=== PATIENT | male | born 1940 | race Caucasian/White ===

== ENCOUNTER 2022-12-11 06:34 | Day surgery (SDC) | payer MEDICARE ==
[~2022-12-11 06:34] MED LIST: SODIUM CHLORIDE 0.9% 1,000 ML IV SCH
[2022-12-11] MEDS ORDERED: SODIUM CHLORIDE 0.9% 1,000 ML IV ONE (06:44)
[2022-12-11] MEDS ORDERED: ceFAZolin 1 GM in SODIUM CHLORIDE 0.9% IRRIG BTL 250 ML IRRIGATION PRN (07:00)
[2022-12-11 07:07] VITALS: RESP 16; TEMP 98.6
[2022-12-11] MEDS ORDERED: fentaNYL (PF) 50 MCG/ML 2 ML AMP ONE (07:42)
[2022-12-11] MEDS ORDERED: LIDOCAINE 1% INJ 10MG/ML (20 ML MDV) ONE ×2 (07:43→08:01)
[2022-12-11] MEDS ORDERED: MIDAZOLAM 2 MG/2 ML VIAL IV ONE ×2 (07:48)
[2022-12-11] MEDS ORDERED: fentaNYL (PF) 50 MCG/ML 2 ML AMP IV ONE ×2 (07:49)
[2022-12-11] MEDS ORDERED: LIDOCAINE 1% INJ 10MG/ML (20 ML MDV) SQ ONE (07:52)
[2022-12-11 08:04] LABS: INR 1.1 (<1.2); Prothrombin Time 11.5 sec (9.0-12.0)
[2022-12-11] MEDS ORDERED: ACETAMINOPHEN TAB 325 MG TAB PO PRN (09:18)
[2022-12-11] MEDS ORDERED: ACETAMINOPHEN IV (For NPO) 1,000 MG in EMPTY BAG 1 BAG IVPB STA (09:26)
[2022-12-11 12:24] VITALS: BP 114/70; PULSE 60
--- NOTE | 2022-12-11 17:31 | P.PCN ---
Description of Procedure: CARDIOLOGY PROCEDURE NOTE Gyroscopic Instrument Tester: Dr. Mathieu Eugene HPI: Patient is a pleasant 82-year-old male with a history of sick sinus syndrome status post dual-chamber permanent pacemaker with addition of single RV AICD lead. Patient had end of battery life and therefore generator change was recommended. Procedure performed: Dual chamber permanent pacemaker generator change Site: Left subclavian Indications: Sick Sinus Syndrome Complications: None Blood Loss: Minimal Description of Procedure: After the risks, benefits, and alternatives of the above-mentioned procedure was explained in detail with the patient, informed consent was obtained. The patient was taken to the cardiac catheterization suite where the left subclavian area was sterily prepped and draped in the usual fashion. Patient was given IV Versed and fentanyl for sedation. The skin over the existing pulse generator was infiltrated with lidocaine. An incision was made in the skin and was deepened until the pectoral fascia was exposed. Hemostasis was obtained. The existing pulse generator was pulled out of the pocket. The leads were disconne cted and were checked for thresholds. The existing leads were then inserted into the appropriate position into the new generator. They were then secured with the setscrew provided. The leads and gen erator were inserted into the pocket with the leads posterior. The subcutaneous tissue was approximated utilizing #2.0 and 3.0 vicryl in an interrupted stitch fashion. The dermal layer was approximated utilizing #4.0 vicryl. The area was cleansed with sterile saline and dried. A sterile 4x4 dressing was applied and the patient was transferred to the post catheterization holding area in stable and satisfactory condition. The patient tolerated the procedure well. Generator Data [employer] Consultant: [email or web address] Brand: [id number] Waller XT DR MRI Model #: [id number] Serial#: [id number] Right Atrial Bipolar Lead Data: Type: Active fixation lead [employer] Consultant: [facility] Model#: 5076-52 Serial Number: [id number] Right Ventricular Bipolar Lead Data: Type: Active fixation lead [employer] Consultant: [employer] Model #: [id number] Serial #: [id number] Stimulation Thresholds: Right atrial bipolar lead pacing and sensing thresholds Voltage: 0.7V Impedance: 551 ohms P-wave sensin.5 mV Right Ventricular bipolar lead pacing and sensing thresholds Pulse Width: 0.4ms Voltage: 1.0 volts Impedance: 342 ohms R-wave sensing: dependent Parameter Setting: Pacing mode is AAIR<=>DDDR Lower rate 60 bpm Upper rate 130 bpm Impressions: 1. Successful generator change of a dual chamber permanent pacemaker in the left pectoral site. Plan: 1. Routine post procedure care will be instituted as well as outpatient follow- up surveillance.
== END 2022-12-11 11:20 | disposition home or self-care (01) ==
LOC: CATHEP 06:34
PROVIDERS: ATTEND Internal Medicine
DX: Z45.010 Encounter for checking and testing of cardiac pacemaker pulse generator [battery] (principal); I49.5 Sick sinus syndrome; Z95.810 Presence of automatic (implantable) cardiac defibrillator; I48.0 Paroxysmal atrial fibrillation; I47.1 Supraventricular tachycardia; I08.0 Rheumatic disorders of both mitral and aortic valves; I27.20 Pulmonary hypertension, unspecified; I42.8 Other cardiomyopathies; Z79.01 Long term (current) use of anticoagulants; Z79.899 Other long term (current) drug therapy
CPT/HCPCS: 33228; 85610; C1785; J2250; J0690; J2001; J3010; J0131

== ENCOUNTER → 2023-02-25 | Outpatient (CLI) | payer MEDICARE ==
--- NOTE | 2023-02-25 16:19 | US ---
EXAMINATION TYPE: US venous doppler duplex LE RT DATE OF EXAM: 02/25/2023 4:06 PM COMPARISON: NONE CLINICAL INDICATION: Male, 82 years old with history of R60.0 EDEMA; Right calf pain SIDE PERFORMED: Right TECHNIQUE: The lower extremity deep venous system is examined utilizing real time linear array sonog shane with graded compression, doppler sonography and color-flow sonography. VESSELS IMAGED: Common Femoral Vein Deep Femoral Vein Greater Saphenous Vein * Femoral Vein Popliteal Vein Small Saphenous Vein * Proximal Calf Veins (* superficial vessels) Right Leg: Appears negative for DVT Grayscale, color doppler, spectral doppler imaging performed of the deep veins of the right lower ext remity. There is normal flow, compressibility, vascular waveforms. IMPRESSION: No ultrasound evidence for acute DVT in the right lower extremity.
== END | disposition home or self-care (01) ==
LOC: RADUSWWP 15:45
PROVIDERS: ATTEND Family Medicine
DX: R60.0 Localized edema (principal); M79.661 Pain in right lower leg

== ENCOUNTER → 2024-03-13 | Outpatient (CLI) | payer MEDICARE ==
--- NOTE | 2024-03-13 14:26 | CT ---
EXAMINATION TYPE: CT lumbar spine wo con DATE OF EXAM: 03/13/2024 2:15 PM COMPARISON: None HISTORY: back pain and left hip pain CT DLP: 475.2 mGycm Automated exposure control for dose reduction was used. Unenhanced CT of the lumbar spine was performed. Bone and soft tissue window settings are submitted as well as coronal and sagittal reconstructions. Scoliosis convex to the left. L1-L2: Normal disc space height. No disc herniation protrusion or central stenosis. No facet joint arthropathy. No evidence for foraminal encroachment. L2-L3: Moderate degenerative disc space narrowing and posterior disc bulge and effacement of the vent ral thecal sac. Hypertrophied ligamentum flavum and facet joint arthropathy resulting in moderate elma tral stenosis. Bilateral foraminal encroachment. L3-L4: Severe degenerative disc space narrowing and posterior disc bulge and effacement of the ventra l thecal sac. Hypertrophied ligamentum flavum and facet joint arthropathy resulting in severe central stenosis. Bilateral foraminal encroachment. Grade 1 anterolisthesis measuring 3 mm. L4-L5: Severe degenerative disc space narrowing and vacuum disks. Posterior disc bulge with partial e ncapsulating hard disc. Hypertrophy of the ligamentum flavum and facet joint arthropathy resulting in moderate central stenosis. Left greater than right foraminal encroachment. L5-S1: Severe degenerative disc space narrowing and vacuum disks. Posterior disc bulge without eviden ce for central stenosis or herniation. Visualized foramina are patent. No paraspinal masses are identified. Lumbar segments are intact. Scattered ventral spondylosis. IMPRESSION: 1. 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
== END | disposition home or self-care (01) ==
LOC: RADCTMAIN 13:52
PROVIDERS: ATTEND Physical Medicine & Rehabilitation
DX: M47.816 Spondylosis without myelopathy or radiculopathy, lumbar region (principal); M41.26 Other idiopathic scoliosis, lumbar region; M51.36 Other intervertebral disc degeneration, lumbar region; M48.061 Spinal stenosis, lumbar region without neurogenic claudication; M43.16 Spondylolisthesis, lumbar region
CPT/HCPCS: 72131

== ENCOUNTER → 2024-04-16 | Outpatient (CLI) | payer MEDICARE ==
[2024-04-16 11:21] LABS: INR 1.2 (<1.2); Prothrombin Time 12.4 sec (10.0-12.5)
== END | disposition home or self-care (01) ==
LOC: LABWHC1 10:07
PROVIDERS: ATTEND Physical Medicine & Rehabilitation
DX: M41.26 Other idiopathic scoliosis, lumbar region (principal); M47.816 Spondylosis without myelopathy or radiculopathy, lumbar region; Z79.01 Long term (current) use of anticoagulants
CPT/HCPCS: 36415; 85610

== ENCOUNTER → 2024-12-09 | Outpatient (CLI) | payer MEDICARE ==
[2024-12-09 13:34] LABS: African American GFR (CKD) 80 (>60 ml/min/1.73 sqM); Blood Urea Nitrogen 28 mg/dL (9-20); Non-African American GFR(CKD) 69 (>60 ml/min/1.73 sqM)
--- NOTE | 2024-12-09 14:43 | CT ---
EXAMINATION TYPE: CT soft tissue neck w con CT DLP: 330.3 mGycm, Automated exposure control for dose reduction was used. DATE OF EXAM: 12/09/2024 2:02 PM COMPARISON: Thyroid ultrasound 11/09/2024. CLINICAL INDICATION:Male, 84 years old with history of R22.1 SWELL MASS LUMP NECK; PHH, Left sided ne ck swelling, mass or lump marked by a BB TECHNIQUE: Standard enhanced CT of the neck following intravenous administration of 100 cc of Isovue 300. Axial sections with coronal and sagittal reformats were obtained. FINDINGS: Dental amalgam creates streak artifact which limits evaluation. Brain: Visualized portions are grossly unremarkable. Orbits: Unremarkable Sinuses: Mild mucosal thickening of the maxillary sinuses. Suprahyoid Neck: The oropharynx, oral cavity, parapharyngeal and retropharyngeal spaces are clear and symmetric. The nasopharynx is unremarkable. Infrahyoid Neck: The larynx, hypopharynx, and supraglottic area are clear and symmetric. Parotid Glands: Unremarkable. Submandibular Glands: Unremarkable. Musculoskeletal: Degenerative disc disease changes of the visualized spine are present. No acute osse ous abnormality. No aggressive osseous lesion. Lymph nodes: There are at least 4 ovoid heterogenous enhancing lesions within the left submandibular /submental space at site of palpable marker. Some are hypodense centrally with exam including a 1.7 c m ovoid lesion at the palpable marker in the submandibular space (series 3, image 53). The other lesi ons extend more into the submental space measuring 1.5 cm (series 3, image 53), 1.4 cm (series 3, 52) , and 1.2 centers (series 3, image 50). These lesions are superficial to the submandibular gland. No other evidence for pathologically enlarged lymph nodes. Vascular structures: Mild atherosclerotic calcifications of the internal carotid arteries. Thoracic Inlet/airway: Airway is patent. The lung apices are clear. Partial visualization of cardiac pacemaking leads. Soft tissues/Thyroid: Atrophic thyroid gland. Remaining soft tissues appear unremarkable. Other: none. IMPRESSION: Approximately 4 ovoid lesions with some demonstrating central hypodensity within the left submandibul ar/submental space anterior to the submandibular gland. These correspond to ultrasound findings. Etio logies include benign and malignant tumors versus abnormal lymphadenopathy. Recommend tissue sampling . [facility], , 12/09/2024 2:41 PM
== END | disposition home or self-care (01) ==
LOC: RADCTMAIN 12:40
PROVIDERS: ATTEND Otolaryngology
DX: R22.1 Localized swelling, mass and lump, neck (principal); E03.4 Atrophy of thyroid (acquired)
CPT/HCPCS: 82565; 84520; 70491; 36415; Q9967

== ENCOUNTER 2024-12-11 12:08 | Inpatient (IN) | payer MEDICARE ==
[2024-12-11] MEDS ORDERED: VANCOMYCIN IV PER PHARMACY 1 EACH MISC MISCELLANE PRN (12:32)
--- NOTE | 2024-12-11 12:42 | ED ---
General Adult HPI - General Chief complaint: Weakness Stated complaint: Weakness Time Seen by Provider: 12/11/24 12:09 Source: patient, EMS Mode of arrival: EMS Limitations: no limitations - History of Present Illness Initial comments: Patient is an 84-year-old gentleman PMH pacemaker on coumadin, presenting today for lightheadedness, fever and hypoxia. History obtained from patient, EMS and patient's . This morning at 5 AM patient woke up and on the way to his bathroom was very unsteady on his feet. This caused him to fall twice witnessed by the patient's . He did not suffer any head trauma. This morning woke up and was acting normally, ate cereal like he normally would and went to his doctor's appointment to have his left neck mass evaluated. While at his doctor's appointment he was noted to be hypoxic with pulse ox 77% on room air and was felt to have a left-sided lean. Patient denies head or neck trauma last night. He is currently on warfarin for his pacemaker. He endorses 2 weeks of right upper quadrant abdominal pain. Denies shortness of breath, cough, chest pain or difficulty in breathing. No fevers prior to this morning. No medications prior to arrival. Denies nausea, vomiting, diarrhea, melena, hematochezia, dysuria,, constipation, hematuria. Patient's and patient are unsure of what patient's recent CT scan of his neck showed, as they have not yet received results. No history of prior CVA. - Related Data Home Medications Medication Instructions Recorded Confirmed Digoxin [Lanoxin] 125 mcg PO DAILY 12/10/22 12/11/24 Levothyroxine Sodium [Synthroid] 50 mcg PO DAILY 12/10/22 12/11/24 Warfarin Sodium 5 mg PO DAILY@1600 12/10/22 12/11/24 atenoloL [Tenormin] 25 mg PO DAILY@1600 12/10/22 12/11/24 Previous Rx's Medication Instructions Recorded Acetaminophen Tab [Tylenol] 650 mg PO Q6HR PRN tab 12/14/24 Atorvastatin [Lipitor] 20 mg PO HS #30 tab 12/14/24 cefuroxime axetiL [Ceftin] 500 mg PO BID 10 Days #20 tab 12/14/24 metroNIDAZOLE [Flagyl] 500 mg PO TID 10 Days #30 tab 12/14/24 Allergies Allergy/AdvReac Type Severity Reaction Status Date / Time No Known Allergies Allergy Verified 12/11/24 13:44 Review of Systems ROS Statement: Those systems with pertinent positive or pertinent negative responses have been documented in the HPI. ROS Other: All systems not noted in ROS Statement are negative. Past Medical History Past Medical History: Atrial Fibrillation, Hypertension, Osteoarthritis (OA), Thyroid Disorder Additional Past Medical History / Comment(s): right shoulder pain currently, thinks probably hurt it working out History of Any Multi-Drug Resistant Organisms: None Reported Past Surgical History: Adenoidectomy, Pacemaker, Tonsillectomy Additional Past Surgical History / Comment(s): vasectomy, bashir hydrocele repair, colonoscopies Past Anesthesia/Blood Transfusion Reactions: Previous Problems w/ Anesthesia Additional Past Anesthesia/Blood Transfusion Reaction / Comment(s): was told by mom when tonsils removed turned blue w/ether Type of Cardiac Device: Permanent Pacemaker Device Placement Date:: 2012 Past Psychological History: No Psychological Hx Reported Smoking Status: Never smoker General Exam - General Exam Comments Initial Comments: PE: CONSTITUTIONAL: No apparent distress, somewhat ill appearing and nontoxic SKIN: Warm, dry, no jaundice, hives or petechiae EYES: Pupils are equally round, extraocular movements intact without nystagmus, clear conjunctiva, non-icteric sclera HENT: Normocephalic, atraumatic, dry mucus membranes, oropharynx clear without exudates NECK: , Full range of motion, normal appearance, no midline spinal TTP PULMONARY: Clear to auscultation without wheezes, rhonchi, or rales, normal ex cursion, no accessory muscle use and no stridor CARDIOVASCULAR: Regular rate, rhythm, normal S1 and S2. No appreciated murmurs, rubs or gallops. Strong radial pulses with intact distal perfusion. No lower extremity edema GASTROINTESTINAL: Soft, active bowel sounds throughout minimal TTP of the right side of the abdomen negative Marks sign, no point tenderness, negative CVA tenderness, non-distended, no palpable masses, no rebound or guarding. No hepatosplenomegaly GENITOURINARY: MUSCULOSKELETAL: Extremities have no gross deformity, no edema, redness, or swelling. No calf swelling NEUROLOGIC: [_a/o x 3, GCS 15, normal mentation, seems mildly aphasic when answering certain questions, speech is clear. Moves all extremities x 4 without motor or sensory deficit, there is no extinction, + dysdiadochokinesia with the bilateral upper extremities, cranial nerves: II (visual gilmore without defects), III, IV and (extraocular movements are intact, pupils are equal with normal reaction to light), V (intact facial sensation and jaw opening), VII (no facial droop), IX and X (normal palate movement, midline uvula, normal voice), XI (symmetrical shoulder shrug and lateral head rotation against resistance), XII (midline tongue protrusion). Motor strength is 5/5 in all extremities. No abnorm al movements. Normal muscle tone. Sensation to light touch is intact bilaterally. No truncal instability or hemineglect PSYCHIATRIC:_normal mood and affect, thought process is clear and linear Limitations: no limitations Course Vital Signs 12/11/24 12/11/24 12/11/24 12:12 13:05 13:55 Temperature 103.3 F H 102.7 F H Pulse Rate 77 60 Respiratory 18 20 Rate Blood Pressure 121/80 107/55 O2 Sat by Pulse 98 88 L 95 Oximetry 12/11/24 16:16 Temperature 99.8 F H Pulse Rate 61 Respiratory 18 Rate Blood Pressure 118/72 O2 Sat by Pulse 97 Oximetry - Reevaluation(s) Reevaluation #1: Case discussed w/ Dr. Noel. Will follow along w/ imaging 12/11/24 12:42 12/15/24 11:43 EKG Findings - EKG Comments: EKG Findings:: Paced rhythm, right bundle branch block, rate 65 bpm GA interval 209 ms QT/QTc 410/421 ms, left axis deviation, T wave inversion leads V1 through V4, no ST depressions or obvious elevations, borderline EKG Medical Decision Making - Medical Decision Making Was pt. sent in by a medical professional or institution (, PA, ENERGY PROJECT MANAGER, urgent care, hospital, or alf...) When possible be specific @ -Patient was sent over from the primary care provider's office due to hypoxia, fever and questionable left-sided lean. Did you speak to anyone other than the patient for history (EMS, parent, family, police, friend...)? What history was obtained from this source @ Spoke w/ pt's who provided additional hx noted in HPI, noting at 5 AM this morning is when unsteadiness and falls occurred, also notes left sided neck mass began in August, resolved spontaneously and the reoccurred prompting CT scan and today's visit to PCP's office Did you review nursing and triage notes (agree or disagree)? Why? @ -I reviewed nursing and triage notes Were old charts reviewed (outside hosp., previous admission, EMS record, old EKG, old radiological studies, urgent care reports/EKG's, alf records)? Report findings @ -Medical records reviewed- Reviewed CT soft tissue neck with contrast performed on 12/09/2024, impression notes approximately 4 open lesions with some demonstrating central hypodensity within the left submandibular/submental space anterior to the submandibular gland, correspond ultrasound findings, etiologies include benign versus malignant tumors versus abnormal lymphadenopathy and recommends tissue sampling Differential Diagnosis (chest pain, altered mental status, abdominal pain women, abdominal pain men, vaginal bleeding, weakness, fever, dyspnea, syncope, headache, dizziness, GI bleed, back pain, seizure, CVA, palpatations, mental health, musculoskeletal)? @Differential diagnosis remains broad however top considerations include sepsis/infection, hypoglycemia, electrolyte abnormality, ACS, malignancy, hemorrhagic versus ischemic CVA, encephalitis, it is not all-inclusive list EKG interpreted by me (3pts min.). @ -As above X-rays interpreted by me (1pt min.). @ -[I personally reviewed chest x-ray, cardiomegaly noted, I see no evidence of pleural effusions, consolidations or pulmonary nodules/masses I agree with radiologist interpretation CT interpreted by me (1pt min.). @Personally reviewed CT abdomen pelvis, appears to show multiple hepatic masses, right renal cyst, bladder wall thickening. Read by radiologist as multiple hypoattenuating masses throughout the liver underlying metastatic disease is not excluded, masses measure up to 5.4 cm biliary tree is normal in caliber, urinary bladder wall thickening may reflect cystitis, simple cyst in the right kidney, noticing masses, appendix was not visualized Personally reviewed CT brain, CTA head and neck, on review of these images I see no evidence of hemorrhage, mass effect or intracranial mass, though left submandibular masses are noted; no large vessel occlusion on CTA head and neck, again note left submandibular masses, I agree with radiologist interpretation U/S interpreted by me (1pt. min.). @ -I personally reviewed ultrasound of the appendix, the appendix was not visualized, I agree with radiologist interpretation I personally reviewed ultrasound of the liver, multiple round masses noted, these do not appear to be thick walled, I agree with radiologist interpretation What testing was considered but not performed or refused? (CT, X-rays, U/S, labs)? Why? @ -None What meds were considered but not given or refused? Why? @ -None Did you discuss the management of the patient with other professionals (professionals i.e. , PA, ENERGY PROJECT MANAGER, lab, RT, psych nurse, social security assessor, testing and regulating chief, teacher, code enforcement officer, bottle caser)? Give summary @Case was discussed w/ Dr. Noel stroke network, will follow along w/ imaging results Was smoking cessation discussed for >3mins.? @ -No Was critical care preformed (if so, how long)? @ Yes 35 minutes Were there social determinants of health that impacted care today? How? (Homelessness, low income, unemployed, alcoholism, drug addiction, transportation, low edu. Level, literacy, decrease access to med. care, detention, rehab)? @ -No Was there de-escalation of care discussed even if they declined (Discuss DNR or withdrawal of care, Hospice)? @ -No What co-morbidities impacted this encounter? (DM, HTN, Smoking, COPD, CAD, Cancer, CVA, ARF, Chemo, Hep., AIDS, mental health diagnosis, sleep apnea, morbid obesity)? @ Atrial fibrillationw/ pacemaker, on coumadin Was patient admitted / discharged? Hospital course, mention meds given and route, prescriptions, significant lab abnormalities, going to OR and other pertinent info. @ -Admission - patient presenting today for fever, pulse ox 77% on outpatient visit, and new onset dizziness with falls. Patient seen and assessed on arrival by myself. He is dry mucous membranes, seems to have some difficulty with word finding during history gathering but is able to identify a pen, phone and watch. He does not appear to have any lean or truncal instability. 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 No other focal neurologic deficits. Some right sided abdominal pain without guarding, negative Marks sign. Patient febrile here with temp 103.3 degrees. Otherwise vital signs acceptable limits. Patient did arrive on 4 L oxygen nasal cannula, he was removed from this during my conversation, and pulse ox decreased only 92% without any increased work of breathing. Patient's will arrive shortly after. Given new unsteadiness, difficulty with word finding and finger-nose testing, stroke alert was activated though I do suspect patient's symptoms are more likely secondary to other etiology noted above, given fever and hypoxia. Of note patient is outside the window for tenecteplase and is currently on Coumadin so is not a tenecteplase candidate. Sepsis bundle was ordered, Rocephin, vancomycin, Ofirmev. Given unknown ejection fraction we will start with [address] brain negative for acute process. CT head neck shows submandibular masses, CT abdomen pelvis also shows masses throughout the liver concerning for metastases. I updated patient and his to these findings and concern for potential neoplasm/ malignancy. We discussed plan for admission for further workup/evaluation and treatment. Pt notes brother who from non hodgkin's lymphoma, sister hx of ovarian CA. Additionally, I was notified by RN that pt's pulse ox did ultimately decrease to 88% on room air. Was placed on 2L nasal cannula. Of note labs were significant for total bilirubin 1.7, AST/ALT 121/92, alk phos 200, mild leukocytosis white blood count 14.1, platelet 132, hemoglobin 12. Case discussed with Dr. Espinoza, kindly accepts patient for admission. Undiagnosed new problem with uncertain prognosis? @Yes submandibular and liver masses w/ uncertain etiology, potential malignancy Drug Therapy requiring intensive monitoring for toxicity (Heparin, Nitro, Insulin, Cardizem)? @ -No Were any procedures done? @ -No Diagnosis/symptom? @ Sepsis, Generalized weakness, submandibular masses with liver masses, acute hypoxic respiratory failure Acute, or Chronic, or Acute on Chronic? @ -acute Uncomplicated (without systemic symptoms) or Complicated (systemic symptoms)? @complicated Side effects of treatment? @ -No Exacerbation, Progression, or Severe Exacerbation? @ -No Poses a threat to life or bodily function? How? (Chest pain, [place], [place], pneumonia, PE, COPD, DKA, ARF, appy, cholecystitis, CVA, Diverticulitis, Homicidal, Suicidal, threat to staff... and all critical care pts) @ Yes, if left untreated could progress to septic shock, if masses left unevaluated and malginant could ultimately cause threat to life - Lab Data Result diagrams: 12/14/24 04:16 12/14/24 04:16 Lab Results 12/11/24 12/11/24 12/11/24 Range/Units 13:01 13:07 13:24 WBC 14.1 H (3.8-10.6) k/uL RBC 3.95 L (4.30-5.90) m/uL Hgb 12.0 L (13.0-17.5) gm/dL Hct 36.8 L (39.0-53.0) % MCV 93.0 (80.0-100.0) fL MCH 30.3 (25.0-35.0) pg MCHC 32.6 (31.0-37.0) g/dL RDW 12.8 (11.5-15.5) % Plt Count 132 L (150-450) k/uL MPV 8.2 Neutrophils % 85 % Lymphocytes % 8 % Monocytes % 6 % Eosinophils % 1 % Basophils % 0 % Neutrophils # 11.9 H (1.3-7.7) k/uL Lymphocytes # 1.2 (1.0-4.8) k/uL Monocytes # 0.8 (0-1.0) k/uL Eosinophils # 0.1 (0-0.7) k/uL Basophils # 0.0 (0-0.2) k/uL PT (10.0-12.5) sec INR (<1.2) APTT (22.0-30.0) sec Sodium (137-145) mmol/L Potassium (3.5-5.1) mmol/L Chloride (98-107) mmol/L Carbon Dioxide (22-30) mmol/L Anion Gap mmol/L BUN (9-20) mg/dL Creatinine (0.66-1.25) mg/dL Est GFR (CKD-EPI)AfAm (>60 ml/min/1.73 sqM) Est GFR (CKD-EPI)NonAf (>60 ml/min/1.73 sqM) Glucose (74-99) mg/dL POC Glucose (mg/dL) 159 H (70-110) mg/dL POC Glu [employer] Instructor ID Wilfrid Thelma Plasma Lactic Acid Francois (0.7-2.0) mmol/L Calcium (8.4-10.2) mg/dL Total Bilirubin (0.2-1.3) mg/dL AST (17-59) U/L ALT (4-49) U/L Alkaline Phosphatase (38-126) U/L Creatine Kinase (55-170) U/L Troponin I (0.000-0.034) ng/mL Total Protein (6.3-8.2) g/dL Albumin (3.5-5.0) g/dL Urine Color Urine Appearance (Clear) Urine pH (5.0-8.0) Ur Specific [place] (1.001-1.035) Urine Protein (Negative) Urine Glucose (UA) (Negative) Urine Ketones (Negative) Urine Blood (Negative) Urine Nitrite (Negative) Urine Bilirubin (Negative) Urine Urobilinogen (<2.0) mg/dL Ur Leukocyte Esterase (Negative) Urine RBC (0-5) /hpf Urine WBC (0-5) /hpf Urine Mucus (None) /hpf Influenza Type A (PCR) Not Detected (Not Detectd) Influenza Type B (PCR) Not Detected (Not Detectd) RSV (PCR) Not Detected (Not Detectd) SARS-CoV-2 (PCR) Not Detected (Not Detectd) 12/11/24 12/11/24 12/11/24 Range/Units 13:24 13:24 13:24 WBC (3.8-10.6) k/uL RBC (4.30-5.90) m/uL Hgb (13.0-17.5) gm/dL Hct (39.0-53.0) % MCV (80.0-100.0) fL MCH (25.0-35.0) pg MCHC (31.0-37.0) g/dL RDW (11.5-15.5) % Plt Count (150-450) k/uL MPV Neutrophils % % Lymphocytes % % Monocytes % % Eosinophils % % Basophils % % Neutrophils # (1.3-7.7) k/uL Lymphocytes # (1.0-4.8) k/uL Monocytes # (0-1.0) k/uL Eosinophils # (0-0.7) k/uL Basophils # (0-0.2) k/uL PT 23.5 H (10.0-12.5) sec INR 2.3 H (<1.2) APTT 29.3 (22.0-30.0) sec Sodium 136 L (137-145) mmol/L Potassium 4.3 (3.5-5.1) mmol/L Chloride 100 (98-107) mmol/L Carbon Dioxide 32 H (22-30) mmol/L Anion Gap 4 mmol/L BUN 28 H (9-20) mg/dL Creatinine 1.07 (0.66-1.25) mg/dL Est GFR (CKD-EPI)AfAm 73 (>60 ml/min/1.73 sqM) Est GFR (CKD-EPI)NonAf 64 (>60 ml/min/1.73 sqM) Glucose 146 H (74-99) mg/dL POC Glucose (mg/dL) (70-110) mg/dL POC Glu [employer]ision [employer]air Instructor ID Plasma Lactic Acid Francois (0.7-2.0) mmol/L Calcium 9.6 (8.4-10.2) mg/dL Total Bilirubin 1.7 H (0.2-1.3) mg/dL AST 121 H (17-59) U/L ALT 92 H (4-49) U/L Alkaline Phosphatase 200 H (38-126) U/L Creatine Kinase 138 (55-170) U/L Troponin I 0.024 (0.000-0.034) ng/mL Total Protein 6.8 (6.3-8.2) g/dL Albumin 3.6 (3.5-5.0) g/dL Urine Color Urine Appearance (Clear) Urine pH (5.0-8.0) Ur Specific [place] (1.001-1.035) Urine Protein (Negative) Urine Glucose (UA) (Negative) Urine Ketones (Negative) Urine Blood (Negative) Urine Nitrite (Negative) Urine Bilirubin (Negative) Urine Urobilinogen (<2.0) mg/dL Ur Leukocyte Esterase (Negative) Urine RBC (0-5) /hpf Urine WBC (0-5) /hpf Urine Mucus (None) /hpf Influenza Type A (PCR) (Not Detectd) Influenza Type B (PCR) (Not Detectd) RSV (PCR) (Not Detectd) SARS-CoV-2 (PCR) (Not Detectd) 12/11/24 12/11/24 Range/Units 13:24 14:23 WBC (3.8-10.6) k/uL RBC (4.30-5.90) m/uL Hgb (13.0-17.5) gm/dL Hct (39.0-53.0) % MCV (80.0-100.0) fL MCH (25.0-35.0) pg MCHC (31.0-37.0) g/dL RDW (11.5-15.5) % Plt Count (150-450) k/uL MPV Neutrophils % % Lymphocytes % % Monocytes % % Eosinophils % % Basophils % % Neutrophils # (1.3-7.7) k/uL Lymphocytes # (1.0-4.8) k/uL Monocytes # (0-1.0) k/uL Eosinophils # (0-0.7) k/uL Basophils # (0-0.2) k/uL PT (10.0-12.5) sec INR (<1.2) APTT (22.0-30.0) sec Sodium (137-145) mmol/L Potassium (3.5-5.1) mmol/L Chloride (98-107) mmol/L Carbon Dioxide (22-30) mmol/L Anion Gap mmol/L BUN (9-20) mg/dL Creatinine (0.66-1.25) mg/dL Est GFR (CKD-EPI)AfAm (>60 ml/min/1.73 sqM) Est GFR (CKD-EPI)NonAf (>60 ml/min/1.73 sqM) Glucose (74-99) mg/dL POC Glucose (mg/dL) (70-110) mg/dL POC Glu [employer] Instructor ID Plasma Lactic Acid Francois 1.6 (0.7-2.0) mmol/L Calcium (8.4-10.2) mg/dL Total Bilirubin (0.2-1.3) mg/dL AST (17-59) U/L ALT (4-49) U/L Alkaline Phosphatase (38-126) U/L Creatine Kinase (55-170) U/L Troponin I (0.000-0.034) ng/mL Total Protein (6.3-8.2) g/dL Albumin (3.5-5.0) g/dL Urine Color Yellow Urine Appearance Clear (Clear) Urine pH 5.5 (5.0-8.0) Ur Specific [place] >1.050 H (1.001-1.035) Urine Protein Trace H (Negative) Urine Glucose (UA) Negative (Negative) Urine Ketones Negative (Negative) Urine Blood Small H (Negative) Urine Nitrite Negative (Negative) Urine Bilirubin Negative (Negative) Urine Urobilinogen <2.0 (<2.0) mg/dL Ur Leukocyte Esterase Negative (Negative) Urine RBC 3 (0-5) /hpf Urine WBC 1 (0-5) /hpf Urine Mucus Rare H (None) /hpf Influenza Type A (PCR) (Not Detectd) Influenza Type B (PCR) (Not Detectd) RSV (PCR) (Not Detectd) SARS-CoV-2 (PCR) (Not Detectd) Disposition Clinical Impression: Liver masses, Mass of left submandibular region, Generalized weakness Disposition: ADMITTED IP TO THIS HOSP Condition: Stable
--- NOTE | 2024-12-11 12:50 | CT ---
EXAMINATION TYPE: CODE STROKE: CT brain wo contr DATE OF EXAM: 12/11/2024 COMPARISON: None CLINICAL INDICATION: Male, 84 years old with history of on warfarin, dizziness, dysdiadokinesia; PHH, AMS TECHNIQUE: CT scan of the head is performed without contrast. CT DLP: [address] CTDI: mGy Automated exposure control for dose reduction was used. FINDINGS: There is no acute intracranial hemorrhage or midline shift identified. There is diffuse v entricular and sulcal prominence consistent with diffuse age-related cerebral atrophy. There is low- attenuation in the periventricular white matter consistent with chronic small vessel ischemic change. The globes are intact and the visualized sinuses are clear. IMPRESSION: No acute intracranial hemorrhage or midline shift. There is diffuse age-related cerebra l atrophy and chronic small vessel ischemic change noted. [facility], , 12/11/2024 12:48 PM
[2024-12-11] MEDS: ACETAMINOPHEN IV (For NPO) 1,000 MG in EMPTY BAG 1 BAG IVPB STA (13:05)
[2024-12-11] MEDS: SODIUM CHLORIDE 0.9% 1,000 ML IV STA (13:05)
[2024-12-11 13:08] LABS: Glucose,Whole Blood 159 mg/dL (70-110)
--- NOTE | 2024-12-11 13:10 | CT ---
EXAMINATION TYPE: CT angio head neck CT DLP: 452.3 mGycm, Automated exposure control for dose reduction was used. DATE OF EXAM: 12/11/2024 1:00 PM COMPARISON: CT brain 12/11/2024, CT soft tissue neck 12/09/2024. CLINICAL INDICATION:Male, 84 years old with history of Neuro deficit, acute, stroke suspected; PHH, C ODE STROKE TECHNIQUE: Axially acquired helical CT angiogram of the head and neck was obtained with contrast util izing 75 cc of Isovue-370 administered intravenously. Axial images are supplemented with 3D reconstru ctions which were post-processed at an independent workstation. NASCET criteria used. FINDINGS: CTA HEAD: No evidence of acute intracranial hemorrhage, mass effect, or midline shift. The ventricles, sulci, a nd cisterns are unremarkable. The visualized portions of the internal carotid arteries, middle cerebral arteries, anterior cerebral arteries, and posterior cerebral arteries are patent. origin of the right PRICING MANAGER. The basilar and vertebral arteries are patent. CTA NECK: Right Carotid System: The common carotid artery and external carotid artery are patent. The carotid bifurcation demonstrate s no evidence of hemodynamically significant stenosis. The remaining portions of the internal carotid artery demonstrate normal size without significant narrowing. Left Carotid System: The common carotid artery and external carotid artery are patent. The carotid bifurcation demonstrate s no evidence of hemodynamically significant stenosis. The remaining portions of the internal carotid artery demonstrate normal size without significant narrowing. Vertebral arteries are patent without evidence hemodynamically significant stenosis. There is a three-vessel aortic arch. The origins of the great vessels are patent. No evidence of hemo dynamically significant stenosis. Left chest wall cardiac pacemaker device with 2 leads identified. Small amount of debris identified w ithin the visualized mid esophagus. Redemonstration of approximately 4 oval lesions with some demonst rating central hypodensity within the left submandibular/submental space anterior to the submandibula r gland. This is seen on recent CT 12/09/2024. Additional enlarged left jugular lymph node measuring u p to 1.1 cm. Mild mucosal thickening of the bilateral inferior maxillary sinuses. Multilevel degenera tive changes of the cervical spine with posterior disc osteophyte complexes. IMPRESSION: 1. No evidence of dissection of the cervical internal carotid arteries or vertebral arteries or any e vidence of significant stenosis at the carotid bifurcations. 2. No evidence of high-grade stenosis or intracranial aneurysm. 3. Redemonstration of approximate 4 ovoid lesions within the left submandibular/submental space from recent CT neck 12/09/2024. Again may represent benign or malignant tumors versus abnormal lymphadenopa thy/metastasis. Tissue sampling is recommended again. Additional enlarged left jugular lymph node gonzalez suring up to 1.1 cm suspicious for possible metastasis. [facility], , 12/11/2024 1:07 PM
--- NOTE | 2024-12-11 13:11 | CT ---
EXAMINATION TYPE: CT abdomen pelvis w con DATE OF EXAM: 12/11/2024 12:52 PM COMPARISON: None. CLINICAL INDICATION: Male, 84 years old with history of RUQ, RLQ pain x 1 week, ABD PAIN TECHNIQUE:CT scan of the abdomen and pelvis is performed without Oral Contrast and with IV Contrast, patient injected with 30 mL of Isovue 370. CT DLP: 1066.4 mGycm, Automated exposure control for dose reduction was used. FINDINGS: LUNG BASES-: No visible nodule. No infiltrate. There is evidence of cardiomegaly. LIVER/GB: No calcified gallstones. Multiple hypoattenuating masses throughout the liver. Underlying metastatic disease is not excluded. Masses measure up to 5.4 cm. Biliary tree is of normal caliber. PANCREAS: No inflammation. No distinct mass. SPLEEN: No splenic enlargement. No lesion seen. ADRENALS: No nodule. No thickening. KIDNEYS/BLADDER: No hydronephrosis. No nephrolithiasis. No distinct solid renal mass. Simple cyst right kidney. Urinary bladder wall thickening may reflect underlying cystitis. Correlate clinically. BOWEL: Nonvisualization of the appendix. Normal bowel caliber. No inflammation. GENITAL ORGANS: Prostatomegaly. LYMPH NODES: No greater than 1cm abdominal or pelvic lymph nodes are appreciated. AORTA: No significant abnormality. OSSEOUS STRUCTURES: No significant abnormality is seen. OTHER: No significant additional abnormality is seen. IMPRESSION: 1. Multiple nonspecific hypoattenuating lesions throughout the liver. Metastatic disease is not exclu ded. Correlate with ultrasound to exclude solid lesions given timing of contrast bolus. 2. Correlate for urinary bladder cystitis. 3. Nonvisualization of the appendix. [facility], , 12/11/2024 1:09 PM
[2024-12-11 13:34] LABS: Basophils % (A) 0 %; Eosinophils # (A) 0.1 k/uL (0-0.7); Eosinophils % (A) 1 %; HCT 36.8 % (39.0-53.0); Lymphocytes # (A) 1.2 k/uL (1.0-4.8); Lymphocytes % (A) 8 %; MCH 30.3 pg (25.0-35.0); MCHC 32.6 g/dL (31.0-37.0); Mean Platelet Volume 8.2; Monocytes # (A) 0.8 k/uL (0-1.0); Monocytes % (A) 6 %; Neutrophils # (A) 11.9 k/uL (1.3-7.7); Neutrophils % (A) 85 %; Platelet Count 132 k/uL (150-450); RBC 3.95 m/uL (4.30-5.90); RDW 12.8 % (11.5-15.5); WBC 14.1 k/uL (3.8-10.6)
[2024-12-11 13:42] LABS: INR 2.3 (<1.2); Partial Thromboplastin Time 29.3 sec (22.0-30.0); Prothrombin Time 23.5 sec (10.0-12.5)
[2024-12-11 13:49] LABS: ALT 92 U/L (4-49); AST 121 U/L (17-59); African American GFR (CKD) 73 (>60 ml/min/1.73 sqM); Albumin 3.6 g/dL (3.5-5.0); Alkaline Phosphatase 200 U/L (38-126); Anion Gap 4 mmol/L; Blood Urea Nitrogen 28 mg/dL (9-20); Calcium 9.6 mg/dL (8.4-10.2); Carbon Dioxide 32 mmol/L (22-30); Chloride 100 mmol/L (98-107); Creatine Kinase 138 U/L (55-170); Glucose 146 mg/dL (74-99); Non-African American GFR(CKD) 64 (>60 ml/min/1.73 sqM); Potassium 4.3 mmol/L (3.5-5.1); Sodium 136 mmol/L (137-145); Total Bilirubin 1.7 mg/dL (0.2-1.3); Total Protein 6.8 g/dL (6.3-8.2)
--- NOTE | 2024-12-11 13:58 | XR ---
EXAMINATION TYPE: XR chest 2V DATE OF EXAM: 12/11/2024 1:43 PM COMPARISON: 02/10/2013 CLINICAL INDICATION: Male, 84 years old with history of altered mental status: Shortness of breath TECHNIQUE: XR chest 2V views of the chest are obtained. FINDINGS: Scattered senescent parenchymal changes noted. Hyperinflation compatible with COPD. No evidence for infiltrate. No evidence for atelectasis. Heart size is stable. Mediastinal structures are stable and grossly unremarkable. No evidence for hilar prominence. Degenerative changes dorsal spine. IMPRESSION: 1. No evidence for acute pulmonary disease. [facility], , 12/11/2024 1:56 PM
[2024-12-11 14:10] LABS: Influenza A Not Detected (Not Detectd); Influenza B Not Detected (Not Detectd); RSV Not Detected (Not Detectd)
[2024-12-11] MEDS ORDERED: NALOXONE 0.4 MG/ML 1 ML VIAL IV PRN (14:35)
[2024-12-11] MEDS ORDERED: traMADol 50 MG TAB PO PRN (14:35)
[2024-12-11] MEDS ORDERED: MORPHINE SULFATE 4 MG/ML SYRINGE IV PRN (14:35)
[2024-12-11] MEDS ORDERED: ONDANSETRON 4 MG/2 ML VIAL IVP PRN (14:35)
[2024-12-11] MEDS ORDERED: ALPRAZolam 0.25 MG TAB PO PRN (14:35)
[2024-12-11 14:53] LABS: Appearance,Urine Clear (Clear); Bilirubin,Urine Negative (Negative); Blood,Urine Small (Negative); Color,Urine Yellow; Glucose,Urine (UA) Negative (Negative); Ketones,Urine Negative (Negative); Leukocyte Esterase,Urine Negative (Negative); Mucus,Urine Rare /hpf; Nitrite,Urine Negative (Negative); PH, Urine 5.5 (5.0-8.0); Protein,Urine Trace (Negative); RBC,Urine 3 /hpf (0-5); Urobilinogen,Urine <2.0 mg/dL (<2.0); WBC,Urine 1 /hpf (0-5)
[2024-12-11 15:05] LABS: Specific Gravity,Urine >1.050 (1.001-1.035)
--- NOTE | 2024-12-11 15:10 | US ---
EXAMINATION TYPE: US abdomen APPY DATE OF EXAM: 12/11/2024 COMPARISON: CT: Today CLINICAL INDICATION: Male, 84 years old with history of R. sided ab pain, unable to vis. appendix on CT; Pain TECHNIQUE: Multiple sonographic images of the right lower quadrant were obtained with graded compress ion with grayscale and color Doppler imaging. FINDINGS: APPENDIX Is the appendix seen in its entirety from the proximal cecum to distal end: no Does the appendix wall appear hypervascular: no Is an appendicolith present: no Is there inflammatory changes or free fluid present: no EAR SPECIALIST NOTES: Appendix not visualized. Peristalsing bowel seen. No rebound tenderness noted. IMPRESSION: Negative [facility], , 12/11/2024 3:08 PM
--- NOTE | 2024-12-11 15:11 | US ---
EXAMINATION TYPE: US liver DATE OF EXAM: 12/11/2024 COMPARISON: CT: Today CLINICAL INDICATION: Male, 84 years old with history of multiple mass on CT, rec'd US; masses TECHNIQUE: Grayscale and color Doppler imaging of the right upper quadrant was performed. FINDINGS: EXAM MEASUREMENTS: Liver Length: 18.9 cm Gallbladder Wall: 0.19 cm CBD: 0.3 cm Right Kidney: 11.1 x 5.3 x 4.2 cm FIELD HEALTH OFFICER NOTES: Pancreas: parts seen appear wnl Liver: large hypoechoic areas seen throughout liver. They appear to be vascular. Largest in right lo be measuring 4.1 x 4.9 x 3.8cm Gallbladder: limited Evidence for sonographic Marks's sign: no CBD: wnl Right Kidney: cystic area seen sup pole measuring 1.7 x 1.9 1.9cm IMPRESSION: Multiple solid masses with hypervascularity. Suspect metastatic disease. [facility], , 12/11/2024 3:08 PM
[2024-12-11] MEDS: VANCOMYCIN 1,500 MG in SODIUM CHLORIDE 0.9% 500 ML 500 ML IVPB ONE (16:15)
[2024-12-11] MEDS: DEXTROSE 5%-0.45% NACL 1,000 ML IV SCH (16:18)
[2024-12-11] MEDS ORDERED: RX INFO: IV CONTRAST WAS GIVEN 1 EACH MISC MISCELLANE PRN (18:00)
[2024-12-11] MEDS: WARFARIN 5 MG TAB PO SCH (18:05)
[2024-12-11] MEDS: ACETAMINOPHEN TAB 325 MG TAB PO PRN (20:55)
--- NOTE | 2024-12-11 22:08 | P.CONS ---
History of Present Illness - Reason for Consult Consult date: 12/11/24 Liver lesions - Chief Complaint Ataxia with falls - History of Present Illness Mr. Boyd is an 84-year-old gentleman with a past medical history significant for atrial fibrillation who presented with ataxia and falls. He initially noted swelling in the left neck in August 2024, which seem to resolved without any specific intervention. This returned in October 2024. Outpatient ultrasound of the head and neck region on 11/07/2024 ordered through his primary care physician noted 3 grouped abnormally enlarged lymph nodes with internal vascularity in the left neck under the jaw demonstrating loss of central fatty hilum. The largest measured 1.8 x 1.[address] of the neck and soft tissue on 12/09/2024 noted at least 4 ovoid heterogeneous enhancing lesions within the left submandibular/submental space measuring between 1.2 and 1.7 cm. He was referred to ENT and was arranged to have sampling performed of these lymph nodes in early December 2024. He noted having ataxia and 2 falls since yesterday and presented to his PCP when he was noted to have fever and was advised to present to the ED for additional management. On presentation, he was noted to be febrile with a Tmax of 103.3 F. He was saturating 88% on room air and was placed on 2 L nasal cannula. Labs were notable for total bilirubin 1.7, AST 121, ALT 92, alkaline phosphatase 200. CBC revealed hemoglobin 12 (MCV 93), WBC 14.1 (ANC 11.9), platelets 132. UA was negative for infection. Viral PCR was negative. Chest x-ray revealed no acute process. CT brain without contrast revealed no acute process. CT angiography of the head and neck revealed no high-grade stenosis or intracranial aneurysm or dissection. It did redemonstrate 4 ovoid lesions within the left submandibular/submental space. As he had noted vague abdominal discomfort, CT abdomen/pelvis with IV contrast noted multiple nonspecific hypoattenuating lesions throughout the liver. He was started on vancomycin/cefepime and given a 1 L bolus of normal saline in addition to IV Tylenol. He was admitted to internal medicine for additional management. Clinically, he denies any persistent fevers, chills, night sweats, anorexia, or unexplained weight loss prior to presentation. He did note gaseous distention of the abdomen without early satiety or anorexia. He has noted headaches without any visual deficits. At baseline, he is extremely active and fit as he exercises and works out regularly. 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 He denies any current or prior history of cigarette smoking. Review of Systems 14 point review of systems was conducted pertinent positives and negatives as noted per HPI Past Medical History Past Medical History: Atrial Fibrillation, Hypertension, Osteoarthritis (OA), Thyroid Disorder Additional Past Medical History / Comment(s): right shoulder pain currently, thinks probably hurt it working out History of Any Multi-Drug Resistant Organisms: None Reported Past Surgical History: Adenoidectomy, Pacemaker, Tonsillectomy Additional Past Surgical History / Comment(s): vasectomy, bashir hydrocele repair, colonoscopies Past Anesthesia/Blood Transfusion Reactions: Previous Problems w/ Anesthesia Additional Past Anesthesia/Blood Transfusion Reaction / Comm: was told by yuval sommer hen tonsils removed turned blue w/ether Type of Cardiac Device: Permanent Pacemaker Device Placement Date:: 2012 Smoking Status: Never smoker Medications and Allergies Home Medications Medication Instructions Recorded Confirmed Type Digoxin [Lanoxin] 125 mcg PO DAILY 12/10/22 12/11/24 History Levothyroxine Sodium [Synthroid] 50 mcg PO DAILY 12/10/22 12/11/24 History Warfarin Sodium 5 mg PO DAILY@1600 12/10/22 12/11/24 History atenoloL [Tenormin] 25 mg PO DAILY@1600 12/10/22 12/11/24 History Allergies Allergy/AdvReac Type Severity Reaction Status Date / Time No Known Allergies Allergy Verified 12/11/24 13:44 Physical Exam Vitals: Vital Signs Temp Pulse Pulse Pulse Pulse Resp BP 12/11/24 18:44 100.2 F H 60 18 12/11/24 18:32 73 73 73 12/11/24 16:16 99.8 F H 61 18 118/72 12/11/24 13:55 102.7 F H 60 20 107/55 12/11/24 13:05 12/11/24 12:12 103.3 F H 77 18 121/80 BP BP BP Pulse Ox 12/11/24 18:44 123/78 95 12/11/24 18:32 131/79 138/81 113/68 12/11/24 16:16 97 12/11/24 13:55 95 12/11/24 13:05 88 L 12/11/24 12:12 98 Intake and Output 12/11/24 12/11/24 12/11/24 06:59 14:59 22:59 Intake Total 110 Balance 110 Intake: Intake, IV Titration 110 Amount Dextrose 5%-0.45% NaCl 1, 60 000 ml @ 20 mls/hr IV . Q24H [facility] Rx#:[id number] cefTRIAXone 2 gm In 50 Sodium Chloride 0.9% 50 ml @ 100 mls/hr IVPB Q24HR [facility] Rx#:[id number] Other: Weight 77.111 kg 78.2 kg - Constitutional General appearance: cooperative, no acute distress - EENT Eyes: EOMI - Neck Left submandibular/submental lymphadenopathy that is firm, fixed, and mildly tender to palpation Neck: lymphadenopathy - Respiratory Respiratory: bilateral: CTA - Cardiovascular Paced rhythm Rhythm: regular - Gastrointestinal General gastrointestinal: distended, hepatomegaly, normal bowel sounds, soft, no tenderness - Integumentary Integumentary: no rash - Neurologic Neurologic: CNII-XII intact - Psychiatric Psychiatric: A&O x's 3, appropriate affect Results CBC & Chem 7: 12/11/24 13:24 12/11/24 13:24 Labs: Abnormal Lab Results - Last 24 Hours (Table) 12/11/24 12/11/24 12/11/24 Range/Units 13:01 13:24 13:24 WBC 14.1 H (3.8-10.6) k/uL RBC 3.95 L (4.30-5.90) m/uL Hgb 12.0 L (13.0-17.5) gm/dL Hct 36.8 L (39.0-53.0) % Plt Count 132 L (150-450) k/uL Neutrophils # 11.9 H (1.3-7.7) k/uL PT 23.5 H (10.0-12.5) sec INR 2.3 H (<1.2) Sodium (137-145) mmol/L Carbon Dioxide (22-30) mmol/L BUN (9-20) mg/dL Glucose (74-99) mg/dL POC Glucose (mg/dL) 159 H (70-110) mg/dL Total Bilirubin (0.2-1.3) mg/dL AST (17-59) U/L ALT (4-49) U/L Alkaline Phosphatase (38-126) U/L Troponin I (0.000-0.034) ng/mL Ur Specific [place] (1.001-1.035) Urine Protein (Negative) Urine Blood (Negative) Urine Mucus (None) /hpf 12/11/24 12/11/24 12/11/24 Range/Units 13:24 14:23 16:18 WBC (3.8-10.6) k/uL RBC (4.30-5.90) m/uL Hgb (13.0-17.5) gm/dL Hct (39.0-53.0) % Plt Count (150-450) k/uL Neutrophils # (1.3-7.7) k/uL PT (10.0-12.5) sec INR (<1.2) Sodium 136 L (137-145) mmol/L Carbon Dioxide 32 H (22-30) mmol/L BUN 28 H (9-20) mg/dL Glucose 146 H (74-99) mg/dL POC Glucose (mg/dL) (70-110) mg/dL Total Bilirubin 1.7 H (0.2-1.3) mg/dL AST 121 H (17-59) U/L ALT 92 H (4-49) U/L Alkaline Phosphatase 200 H (38-126) U/L Troponin I 0.043 H* (0.000-0.034) ng/mL Ur Specific [place] >1.050 H (1.001-1.035) Urine Protein Trace H (Negative) Urine Blood Small H (Negative) Urine Mucus Rare H (None) /hpf Assessment and Plan (1) Lymphadenopathy of head and neck Current Visit: Yes Status: Acute Code(s): R59.1 - GENERALIZED ENLARGED LYMPH NODES SNOMED Code(s): 625847387 (2) Liver lesion Current Visit: Yes Status: Acute Code(s): K76.9 - LIVER DISEASE, UNSPECIFIED SNOMED Code(s): 017873373 (3) Ataxia Current Visit: Yes Status: Acute Code(s): R27.0 - ATAXIA, UNSPECIFIED SNOMED Code(s): 65670180 Plan: #Ataxia -Presented with ataxia and 2 episodes of falls within the past 24 hours prior to admission -Noted to have fever when presenting to his PCPs clinic -Tmax 103.3 F on admission -CTA brain without contrast along with CT angio of the head and neck revealing no acute process -Given noted lymphadenopathy in the left submandibular/submental region along with liver lesions there is concern for malignancy -I did recommend additional imaging of the brain to rule out intracranial metastases -As he has a pacemaker, MRI of the brain cannot be obtained -CT of the brain with IV contrast ordered #Left submandibular/submental lymphadenopathy -Originally noted in August 2024 and subsequently resolved, but returned in October 2024 -Noted to have persistent left submandibular/submental lymphadenopathy on ultrasound on 11/07/[address] of the neck/soft tissue on 12/09/2024 -Plan to obtain biopsy inpatient following CT of the brain #Liver lesion -Noted to have multiple hypodense lesions in the liver -Likely to be related to the lymphadenopathy in the left submandibular/submental region -As submental region can be biopsied, biopsy of a liver lesion will not be needed Jass Ga MD
[2024-12-11] MEDS: metroNIDAZOLE 500 MG TAB PO SCH (22:28)
[2024-12-11] MEDS: atenoloL 25 MG TAB PO SCH (22:29)
--- NOTE | 2024-12-11 23:40 | P.CONS ---
History of Present Illness - Reason for Consult Consult date: 12/11/24 Sepsis Requesting physician: Jeffrey Spain - Chief Complaint Weakness and fall x 1 day - History of Present Illness Patient is a 84-year-old male with a past medical history significant for atrial fibrillation hypertension osteoarthritis hypothyroidism presenting to the hospital for evaluation of feeling weak lightheadedness and fever apparently the morning of presentation to the hospital the patient woke up 5 AM went to the bathroom he was very unsteady on his feet is causing him to fall twice witnessed by the patient did not loss any consciousness or head trauma patient subsequently went back to sleep and afterwards went for the breakfast and then f ollow-up with his PCP with the patient was noticed to be hypoxic with O2 sats of 7% and was felt to lead to the left side with the patient was advised to go to the hospital patient also complaining of right upper quadrant abdominal pain over the last 2 weeks mostly dull aching mild to moderate intensity without any radiation patient denies having any nausea vomiting no diarrhea constipation or blood in the stool with the symptoms the patient has been evaluated on presentation to the hospital he did have a temperature of 103.3 F patient was nontachycardic hypotensive or hypoxic patient did have a white count of 14.1 but no left shift creatinine 1.07 liver enzymes are elevated UA has been negative influenza RSV COVID testing negative patient did have a abdominal pelvis CT which shows multiple nonspecific lesions throughout the liver metastatic disease and not excluded concerning for urinary tract cystitis and nonvisualization of the appendix patient also have a liver ultrasound with large hypoechoic areas suspect metastatic disease patient was started on Rocephin and vancomycin infect ious he was consulted by admitting team concerning for sepsis Review of Systems Positive point and negatives has been mentioned in the HPI, complete review of systems was performed and all other systems are negative Past Medical History Past Medical History: Atrial Fibrillation, Hypertension, Osteoarthritis (OA), Thyroid Disorder Additional Past Medical History / Comment(s): right shoulder pain currently, thinks probably hurt it working out History of Any Multi-Drug Resistant Organisms: None Reported Past Surgical History: Adenoidectomy, Pacemaker, Tonsillectomy Additional Past Surgical History / Comment(s): vasectomy, bashir hydrocele repair, colonoscopies Past Anesthesia/Blood Transfusion Reactions: Previous Problems w/ Anesthesia Additional Past Anesthesia/Blood Transfusion Reaction / Comm: was told by mom when tonsils removed turned blue w/ether Type of Cardiac Device: Permanent Pacemaker Device Placement Date:: 2012 Smoking Status: Never smoker Medications and Allergies Home Medications Medication Instructions Recorded Confirmed Type Digoxin [Lanoxin] 125 mcg PO DAILY 12/10/22 12/11/24 History Levothyroxine Sodium [Synthroid] 50 mcg PO DAILY 12/10/22 12/11/24 History Warfarin Sodium 5 mg PO DAILY@1600 12/10/22 12/11/24 History atenoloL [Tenormin] 25 mg PO DAILY@1600 12/10/22 12/11/24 History Allergies Allergy/AdvReac Type Severity Reaction Status Date / Time No Known Allergies Allergy Verified 12/11/24 13:44 Physical Exam Vitals: Vital Signs Temp Pulse Pulse Pulse Pulse Resp BP 12/11/24 18:44 100.2 F H 60 18 12/11/24 18:32 73 73 73 12/11/24 16:16 99.8 F H 61 18 118/72 12/11/24 13:55 102.7 F H 60 20 107/55 12/11/24 13:05 12/11/24 12:12 103.3 F H 77 18 121/80 BP BP BP Pulse Ox 12/11/24 18:44 123/78 95 12/11/24 18:32 131/79 138/81 113/68 12/11/24 16:16 97 12/11/24 13:55 95 12/11/24 13:05 88 L 12/11/24 12:12 98 Intake and Output 12/11/24 12/11/24 12/12/24 14:59 22:59 06:59 Intake Total 110 Balance 110 Intake: Intake, IV Titration 110 Amount Dextrose 5%-0.45% NaCl 1, 60 000 ml @ 20 mls/hr IV . Q24H [facility] Rx#:[id number] cefTRIAXone 2 gm In 50 Sodium Chloride 0.9% 50 ml @ 100 mls/hr IVPB Q24HR [facility] Rx#:[id number] Other: Weight 77.111 kg 78.2 kg GENERAL DESCRIPTION: Elderly male lying in bed, no distress. No tachypnea or accessory muscle of respiration use. HEENT: Shows Pallor , no scleral icterus. Oral mucous membrane is dry. NECK: Trachea central, no thyromegaly. LUNGS: Unlabored breathing. Clear to auscultation anteriorly. No wheeze or crackle. HEART: S1, S2, regular rate and rhythm. No loud murmur ABDOMEN: Soft, no tenderness , EXTREMITIES: No edema of feet. SKIN: No rash, no masses palpable. NEUROLOGICAL: The patient is awake, alert, oriented x3, mood and affect normal. Results CBC & Chem 7: 12/11/24 13:24 12/11/24 13:24 Labs: Abnormal Lab Results - Last 24 Hours (Table) 12/11/24 12/11/24 12/11/24 Range/Units 13:01 13:24 13:24 WBC 14.1 H (3.8-10.6) k/uL RBC 3.95 L (4.30-5.90) m/uL Hgb 12.0 L (13.0-17.5) gm/dL Hct 36.8 L (39.0-53.0) % Plt Count 132 L (150-450) k/uL Neutrophils # 11.9 H (1.3-7.7) k/uL PT 23.5 H (10.0-12.5) sec INR 2.3 H (<1.2) Sodium (137-145) mmol/L Carbon Dioxide (22-30) mmol/L BUN (9-20) mg/dL Glucose (74-99) mg/dL POC Glucose (mg/dL) 159 H (70-110) mg/dL Total Bilirubin (0.2-1.3) mg/dL AST (17-59) U/L ALT (4-49) U/L Alkaline Phosphatase (38-126) U/L Troponin I (0.000-0.034) ng/mL Ur Specific [place] (1.001-1.035) Urine Protein (Negative) Urine Blood (Negative) Urine Mucus (None) /hpf 12/11/24 12/11/24 12/11/24 Range/Units 13:24 14:23 16:18 WBC (3.8-10.6) k/uL RBC (4.30-5.90) m/uL Hgb (13.0-17.5) gm/dL Hct (39.0-53.0) % Plt Count (150-450) k/uL Neutrophils # (1.3-7.7) k/uL PT (10.0-12.5) sec INR (<1.2) Sodium 136 L (137-145) mmol/L Carbon Dioxide 32 H (22-30) mmol/L BUN 28 H (9-20) mg/dL Glucose 146 H (74-99) mg/dL POC Glucose (mg/dL) (70-110) mg/dL Total Bilirubin 1.7 H (0.2-1.3) mg/dL AST 121 H (17-59) U/L ALT 92 H (4-49) U/L Alkaline Phosphatase 200 H (38-126) U/L Troponin I 0.043 H* (0.000-0.034) ng/mL Ur Specific [place] >1.050 H (1.001-1.035) Urine Protein Trace H (Negative) Urine Blood Small H (Negative) Urine Mucus Rare H (None) /hpf Assessment and Plan (1) Fever Current Visit: Yes Status: Acute Code(s): R50.9 - FEVER, UNSPECIFIED SNOMED Code(s): 239276734 (2) SIRS (systemic inflammatory response syndrome) Current Visit: Yes Status: Acute Code(s): R65.10 - SIRS OF NON-INFECTIOUS ORIGIN W/O ACUTE ORGAN DYSFUNCTION SNOMED Code(s): 577070204 Plan: 1-Patient presented to hospital with weakness and fall x 2 in this patient who did have fever as well as elevated white count meeting currently for SIRS source and likely hematological malignancy as the patient did have evidence of cervical lymphadenopathy and multiple liver masses clinically not behaving as a liver abscess and no other obvious focus of infection on investigation or clinical examinations so far 2-blood culture has been obtained we will check inflammatory markers 3-we will empirically cover with Rocephin and Flagyl however discontinue vancomycin We will follow on clinical condition and cultures to further adjust medication if needed Thank you for this consultation we will follow the patient along with you Dictation was produced using [employer] dictation software. please excuse any grammatical, word or spelling errors. Time with Patient: Greater than 30
--- NOTE | 2024-12-11 23:48 | HP ---
HISTORY AND PHYSICAL CHIEF COMPLAINT: Weakness, unsteadiness, fever, and hypoxia. HISTORY OF PRESENT ILLNESS: This 84-year-old gentleman with a past medical history of multiple medical problems including atrial fibrillation. He is having a left neck swelling, just be evaluated by Dr. Pena. Apparently biopsies planning recently. The patient noticed some unsteadiness and fall this morning at 5 a.m. The patient was taken to primary physician's office, Dr. Tracey's office. Pulse ox was 77%. The patient also has fever and the patient came to [facility], admitted for further evaluation and treatment. Evaluation including the abdomen and pelvis CAT scan showed multiple nonspecific pertinent lesions throughout the liver with possibly metastatic lesion. CT brain was unremarkable. Chest x-ray showed some cardiomegaly. Liver ultrasound showed swollen masses. There is no history of fever, rigors, or chills at this time. PAST MEDICAL HISTORY: History of neck swelling and as mentioned history of atrial fibrillation. Rest of the history and rest of the chart is also reviewed. HOME MEDICATIONS: Reviewed include Tenormin, dose and rest of medications reviewed. ALLERGIES: None. FAMILY HISTORY: No history of heart disease or strokes in the family. SOCIAL HISTORY: No history of smoking or alcohol. REVIEW OF SYSTEMS: Fourteen-point review of systems is negative except as mentioned earlier. PHYSICAL EXAMINATION: VITAL SIGNS: Pulse 61, blood pressure 118/70, respirations 18, and T-max 102.7. HEENT: Conjunctivae normal. NECK: No JVD. CARDIOVASCULAR: S1, S2. RESPIRATORY: Breath sounds diminished at the bases. A few scattered rhonchi and crackles. ABDOMEN: Soft and nontender. Mild diffuse distention. Hepatomegaly present. LEGS: No edema. NERVOUS SYSTEM: Focal deficit. LABORATORY DATA: WBC 14.1. ASSESSMENT: 1. Fever, for evaluation of undetermined origin, possible flu-like syndrome. 2. Left neck swelling with multiple hepatic lesions, possibly metastatic disease, primary unknown. 3. Elevated WBC. 4. Ataxia. 5. Atrial fibrillation. 6. History of degenerative joint disease. 7. History of right shoulder pain. 8. History of pacemaker placement. RECOMMENDATIONS AND DISCUSSION: This 84-year-old gentleman, who presented with multiple complex medical issues. We will monitor the patient closely. I would recommend CT scan of the chest and Neurology evaluation, possible MRI, Hematology/Oncology evaluation, bone scan. The exact etiology of infections are unknown at this time. Viral titers are negative. I recommend cultures as well as empiric antibiotics and Infectious Disease evaluation also. Prognosis guarded because of multiple complex medical issues. Further recommendations to follow. See orders for details. MMODL / IJN: [id number] /
[2024-12-12] MEDS: LEVOTHYROXINE 50 MCG TAB PO SCH (06:33)
[2024-12-12 06:40] LABS: INR 2.7 (<1.2); Prothrombin Time 26.6 sec (10.0-12.5)
[2024-12-12] MEDS ORDERED: VANCOMYCIN 1,500 MG in SODIUM CHLORIDE 0.9% 500 ML 500 ML IVPB SCH (08:00)
[2024-12-12] MEDS: DIGOXIN 125 MCG TAB PO SCH (08:33)
[2024-12-12 09:56] LABS: Basophils # (A) 0.04 X 10*3/uL (0.00-0.10); Basophils % (A) 0.3 %; Eosinophils # (A) 0.02 X 10*3/uL (0.04-0.35); Eosinophils % (A) 0.1 %; HCT 33.5 % (39.6-50.0); HGB 10.6 g/dL (13.0-17.0); Lymphocytes # (A) 1.87 X 10*3/uL (0.90-5.00); Lymphocytes % (A) 12.5 %; MCH 30.3 pg (27.0-32.0); MCHC 31.6 g/dL (32.0-37.0); MCV 95.7 FL (80.0-97.0); Mean Platelet Volume 12.2 FL (9.5-12.2); Monocytes # (A) 1.39 X 10*3/uL (0.20-1.00); Monocytes % (A) 9.3 %; NRBC Per 100 WBC 0 X 10*3/uL (0.00-0.01); Neutrophils % (A) 77.4 %; Platelet Count 127 X 10*3/uL (140-440); RDW 13.8 % (11.5-14.5); WBC 14.98 X 10*3/uL (4.50-10.00)
[2024-12-12 10:24] LABS: BUN/Creat Ratio 22.38 Ratio (12.00-20.00); Blood Urea Nitrogen 29.1 mg/dL (9.0-27.0); Calcium 8.9 mg/dL (8.7-10.3); Carbon Dioxide 27.2 mmol/L (21.6-31.8); Chloride 105 mmol/L (96-109); Glucose 149 mg/dL (70-110); Potassium 4.1 mmol/L (3.5-5.5); Sodium 142 mmol/L (135-145)
[2024-12-12 11:58] LABS: Erythrocyte Sedimentation Rate 39 mm/Hr (0-20)
--- NOTE | 2024-12-12 13:41 | P.CRDCN ---
History of Present Illness Consult date: 12/12/24 Consult reason: atrial fibrillation History of present illness: This is Bebeto Ojeda NP, I'm dictating on behalf of Dr. Roberts's H&P and A&P The patient was interviewed and examined. HPI: Patient is a pleasant 84-year-old male with a past medical history that includes atrial fibrillation, hypertension, osteoarthritis, and hypothyroidism who presented to the hospital with complaints of lightheadedness, fever, and hypoxia. The patient had woke up and gone to his bathroom and was found to be unsteady on his feet. He had 2 witnessed falls by his at that time. There was no trauma suffered at that time. He had gone back to bed and woke up and was acting normally, and went to a physician appointment to have a left neck mass evaluated. While at the appointment he was noted to be hypoxic at 77% on room air and they thought had a left sided lean. He was recommended to present to the emergency department for evaluation. In the emergency department the patient had an EKG completed that demonstrated atrial pacing with right bundle branch block. X-ray of the chest was negative for acute process. Due to the fall patient had a CT scan of the head and neck, which redemonstrates known masses on the left side of the neck. Further imaging was done concerning the masses. Cardiology was consulted due to the history of A-fib and mildly elevated troponins. Patient is well-known to us, and has a known long history of right ventricular enlargement, with chronic tricuspid regurgitation. This has been unchanged for many years. This morning upon evaluation the patient reports that he is feeling okay today. He is noted to be on room air. He denies chest pain, shortness of breath, and heart palpitations. ROS: [No fever, chills, or rigors] [no cough, phlegm, or expectoration] [no nausea, vomiting, or diarrhea] [no hematuria, dysuria] [no musculoskelatal complaints] [no strokes or seizures] [no skin lesions] EXAMINATION: GENERAL: Well-appearing, well-nourished and in no acute distress. NECK: Supple without JVD or thyromegaly. LUNGS: Breath sounds clear to auscultation bilaterally. Respiration equal and unlabored. No wheezes, rales or rhonchi. HEART: Regular rate and rhythm without murmurs, rubs or gallops. S1 and S2 heard. EXTREMITIES: Normal range of motion, no edema. No clubbing or cyanosis. Peripheral pulses intact and strong. REVIEW OF LABS, ECG & MEDICAL DATA: LABS: White count 14.9, hemoglobin 10.6, platelets 127, sodium 142, potassium 4.1, BUN 29.1, creatinine 1.3, troponin-0.024, 0.043 EKG: Atrial pacing with right bundle branch block IMAGING: CT of the brain dated 12/11/2024 demonstrates no acute intracranial hemorrhage or midline shift, there is diffuse age-related cerebral atrophy and chronic small vessel ischemic changes noted. CT angio of the head and neck dated 12/11/2024 demonstrates no evidence of dissection of the cervical internal carotid arteries or vertebral arteries or any evidence of significant stenosis at the carotid bifurcations, no evidence of high-grade stenosis or intracranial aneurysm, redemonstration of approximate 4 ovoid lesions within the left submandibular/submental space from recent CT neck 12/09/2024. Again may represent benign or malignant tumors versus abnormal lymphadenopathy/metastasis. Tissue sampling is recommended again. Additional enlarged left jugular lymph node measuring up to 1.1 cm suspicious for possible metastasis. CT of the abd omen and pelvis with contrast dated 12/11/2024 demonstrates multiple nonspecific hypoattenuating lesions throughout the liver, metastatic disease is not excluded, correlate with ultrasound to exclude solid lesions given timing of contrast bolus, correlate for urinary bladder cystitis, nonvisualization of the appendix. Chest x-ray dated 12/11/2024 demonstrates no evidence for acute pulmonary disease. Limited ultrasound of the appendix demonstrates no visualized appendix seen. Ultrasound of the liver dated 12/11/2024 demonstrates multiple solid masses with hypervascularity, suspect metastatic disease. VITALS: Temp 100.2, pulse 73, respirations 16, blood pressure 114/65, O2 saturation 94% on room air. Orthostatic vital signs negative. IMPRESSION: 1. Hypoxia, possibly infectious in etiology 2. Multiple falls 3. Chronic right ventricular enlargement, tricuspid regurgitation 4. History atrial fibrillation 5. Elevated troponin PLAN: Troponin elevation is hypoxic in origin. No evidence of MO otherwise. Right ventricular enlargement and tricuspid regurgitation is chronic and known. Start atorvastatin 20 mg daily. Resume home medications. No further recommendations from a cardiology standpoint. Patient may follow-up with Dr. Holloway in 1 to 2 weeks. Thank you for the consult and allowing us to participate in the care of this patient. Past Medical History Past Medical History: Atrial Fibrillation, Hypertension, Osteoarthritis (OA), Thyroid Disorder Additional Past Medical History / Comment(s): right shoulder pain currently, thinks probably hurt it working out History of Any Multi-Drug Resistant Organisms: None Reported Past Surgical History: Adenoidectomy, Pacemaker, Tonsillectomy Additional Past Surgical History / Comment(s): vasectomy, bashir hydrocele repair, colonoscopies Past Anesthesia/Blood Transfusion Reactions: Previous Problems w/ Anesthesia Additional Past Anesthesia/Blood Transfusion Reaction / Comment(s): was told by mom when tonsils removed turned blue w/ether Type of Cardiac Device: Permanent Pacemaker Device Placement Date:: 2012 Smoking Status: Never smoker Medications and Allergies Home Medications Medication Instructions Recorded Confirmed Type Digoxin [Lanoxin] 125 mcg PO DAILY 12/10/22 12/11/24 History Levothyroxine Sodium [Synthroid] 50 mcg PO DAILY 12/10/22 12/11/24 History Warfarin Sodium 5 mg PO DAILY@1600 12/10/22 12/11/24 History atenoloL [Tenormin] 25 mg PO DAILY@1600 12/10/22 12/11/24 History Allergies Allergy/AdvReac Type Severity Reaction Status Date / Time No Known Allergies Allergy Verified 12/11/24 13:44 Physical Exam Vitals: Vital Signs Temp Pulse Pulse Pulse Pulse Resp BP 12/12/24 07:53 100.2 F H 73 78 62 16 12/12/24 06:38 101.3 F H 12/12/24 01:06 98.6 F 66 16 12/11/24 22:00 100.2 F H 12/11/24 18:44 100.2 F H 60 18 12/11/24 18:32 73 73 73 12/11/24 16:16 99.8 F H 61 18 118/72 12/11/24 13:55 102.7 F H 60 20 107/55 BP BP BP Pulse Ox 12/12/24 07:53 114/65 122/69 99/59 94 L 12/12/24 06:38 12/12/24 01:06 102/64 94 L 12/11/24 22:00 12/11/24 18:44 123/78 95 12/11/24 18:32 131/79 138/81 113/68 12/11/24 16:16 97 12/11/24 13:55 95 Intake and Output 12/11/24 12/12/24 12/12/24 22:59 06:59 14:59 Intake Total 110 Balance 110 Intake: Intake, IV Titration 110 Amount Dextrose 5%-0.45% NaCl 1, 60 000 ml @ 50 mls/hr IV . Q20H [facility] Rx#:[id number] cefTRIAXone 2 gm In 50 Sodium Chloride 0.9% 50 ml @ 100 mls/hr IVPB Q24HR [facility] Rx#:[id number] Other: # Voids 3 Weight 78.2 kg Results 12/12/24 05:47 12/12/24 05:47 Cardiac Enzymes 12/11/24 12/11/24 12/11/24 Range/Units 13:24 13:24 16:18 AST 121 H (17-59) U/L Troponin I 0.024 0.043 H* (0.000-0.034) ng/mL Coagulation 12/11/24 12/12/24 Range/Units 13:24 05:47 PT 23.5 H 26.6 H (10.0-12.5) sec APTT 29.3 (22.0-30.0) sec CBC 12/11/24 12/12/24 Range/Units 13:24 05:47 WBC 14.1 H 14.98 H (3.8-10.6) k/uL RBC 3.95 L 3.50 L (4.30-5.90) m/uL Hgb 12.0 L 10.6 L (13.0-17.5) gm/dL Hct 36.8 L 33.5 L (39.0-53.0) % Plt Count 132 L 127 L (150-450) k/uL Comprehensive Metabolic Panel 12/11/24 12/12/24 Range/Units 13:24 05:47 Sodium 136 L 142 (137-145) mmol/L Potassium 4.3 4.1 (3.5-5.1) mmol/L Chloride 100 105 (98-107) mmol/L Carbon Dioxide 32 H 27.2 (22-30) mmol/L BUN 28 H 29.1 H (9-20) mg/dL Creatinine 1.07 1.3 (0.66-1.25) mg/dL Glucose 146 H 149 H (74-99) mg/dL Calcium 9.6 8.9 (8.4-10.2) mg/dL AST 121 H (17-59) U/L ALT 92 H (4-49) U/L Alkaline Phosphatase 200 H (38-126) U/L Total Protein 6.8 (6.3-8.2) g/dL Albumin 3.6 (3.5-5.0) g/dL Current Medications Generic Name Dose Route Start Last Admin Trade Name Freq PRN Reason Stop Dose Admin Acetaminophen 650 mg 12/11/24 18:30 12/12/24 06:40 Acetaminophen Tab 325 Mg Tab PO 650 mg Q6HR PRN Administration Mild Pain or Fever > 100.5 Alprazolam 0.25 mg 12/11/24 14:35 Alprazolam 0.25 Mg Tab PO Q6HR PRN Anxiety Atenolol 25 mg 12/11/24 20:45 12/11/24 22:29 Atenolol 25 Mg Tab PO 25 mg DAILY@1600 [facility] Administration Atorvastatin Calcium 20 mg 12/12/24 21:00 Atorvastatin 20 Mg Tab PO HS [facility] Digoxin 125 mcg 12/12/24 09:00 12/12/24 08:33 Digoxin 125 Mcg Tab PO 125 mcg DAILY [facility] Administration Dextrose/Sodium Chloride 1,000 mls @ 50 mls/hr 12/11/24 14:45 12/11/24 16:18 Dextrose 5%-1/2ns Iv Soln IV 20 mls/hr .Q20H [facility] Administration Ceftriaxone Sodium 2 gm/ 50 mls @ 100 mls/hr 12/12/24 09:00 12/12/24 08:32 Sodium Chloride IVPB 100 mls/hr Q24HR [facility] Administration Protocol Levothyroxine Sodium 50 mcg 12/12/24 06:30 12/12/24 06:33 Levothyroxine 50 Mcg Tab PO 50 mcg DAILY@0630 [facility] Administration Metronidazole 500 mg 12/11/24 22:00 12/12/24 08:32 Metronidazole 500 Mg Tab PO 500 mg TID [facility] Administration Protocol Miscellaneous Information 0 each 12/11/24 16:42 Warfarin Per Pharmacy MISCELLANE DIRECTED PRN PER PROTOCOL Miscellaneous Information 1 each 12/11/24 18:00 Rx Info: Iv Contrast Was Given 1 Each Misc MISCELLANE 12/13/24 18:01 DAILY PRN Per Protocol Morphine Sulfate 4 mg 12/11/24 14:35 Morphine Sulfate 4 Mg/Ml Syringe IV Q4HR PRN Severe Pain (Scale 7 to 10) Naloxone HCl 0.2 mg 12/11/24 14:35 Naloxone 0.4 Mg/Ml 1 Ml Vial IV Q2M PRN Opioid Reversal Ondansetron HCl 4 mg 12/11/24 14:35 Ondansetron 4 Mg/2 Ml Vial IVP Q8HR PRN Nausea And Vomiting Tramadol HCl 50 mg 12/11/24 14:35 Tramadol 50 Mg Tab PO Q6H PRN Moderate Pain (Scale 4 to 6) Warfarin Sodium 3 mg 12/12/24 18:00 Warfarin 3 Mg Tab PO 12/12/24 18:01 ONCE@1800 ONE Protocol Intake and Output 12/11/24 12/12/24 12/12/24 22:59 06:59 14:59 Intake Total 110 Balance 110 Intake: Intake, IV Titration 110 Amount Dextrose 5%-0.45% NaCl 1, 60 000 ml @ 50 mls/hr IV . Q20H [facility] Rx#:[id number] cefTRIAXone 2 gm In 50 Sodium Chloride 0.9% 50 ml @ 100 mls/hr IVPB Q24HR [facility] Rx#:[id number] Other: # Voids 3 Weight 78.2 kg 12/12/24 05:47 12/12/24 05:47
--- NOTE | 2024-12-12 13:52 | CT ---
EXAMINATION TYPE: CT brain w con DATE OF EXAM: 12/12/2024 COMPARISON: CT brain 1 day earlier. CLINICAL INDICATION: Male, 84 years old with history of ataxia, headaches, r/o brain mets; PHH, ataxi a, headaches r/o brain mets TECHNIQUE: CT of the brain is performed with IV Contrast, patient injected with 80 mL of Isovue 300. CT DLP: 1164.90 mGycm Automated exposure control for dose reduction was used. FINDINGS: There is no abnormal enhancing mass or midline shift identified. Mild ventricular and sulcal prominen ce is redemonstrated. Mild to moderate low attenuation in the deep periventricular white matter is ag ain seen. [id number]-kd-[id number] mucosal thickening in the bilateral maxillary sinuses is redemonstrated. T he globes are intact bilaterally. IMPRESSION: No abnormal enhancing masses to suggest metastatic disease to the brain. . [facility], , 12/12/2024 1:49 PM
--- NOTE | 2024-12-12 14:50 | CA ---
Transthoracic Echo Report Name: Baljit Boyd Age: 84 Gender: M : 1940 Exam Date: 12/12/2024 08:08 Exam Location: [place] [facility] Ht (in): 70 Wt (lb): 170 Ordering Physician: Jeffrey Spain MD Attending/Referring Phys: Drip Molder Brianna Barros RDCS Procedure CPT: Indications: critical troponin 0.043 Cardiac Hx: Technical Quality: Good Contrast 1: Total Dose (mL): Contrast 2: Total Dose (mL): MEASUREMENTS (Male / Female) Normal Values 2D ECHO LV Diastolic Diameter PLAX 5.2 cm 4.2 - 5.9 / 3.9 - 5.3 cm LV Systolic Diameter PLAX 3.4 cm IVS Diastolic Thickness 1.1 cm 0.6 - 1.0 / 0.6 - 0.9 cm LVPW Diastolic Thickness 1.1 cm 0.6 - 1.0 / 0.6 - 0.9 cm LV Relative Wall Thickness 0.4 LVOT Diameter 2.2 cm LV Diastolic Volume MOD BP 120.9 cm??? 67 - 155 / 56 - 104 cm??? LV Systolic Volume MOD BP 51.7 cm??? 22 - 58 / 19 - 49 cm??? LV Ejection Fraction MOD BP 57.3 % >= 55 % LV Cardiac Index MOD BP 2194.3 cm???/min???m??? LV Diastolic Volume MOD 4C 116.0 cm??? LV Systolic Volume MOD 4C 49.3 cm??? LV Ejection Fraction MOD 4C 57.5 % LV Cardiac Index MOD 4C 2112.5 cm???/min???m??? LV Diastolic Length 4C 7.8 cm LV Systolic Length 4C 6.4 cm LV Diastolic Volume MOD 2C 118.1 cm??? LV Systolic Volume MOD 2C 52.1 cm??? LV Ejection Fraction MOD 2C 55.9 % LV Cardiac Index MOD 2C 2091.3 cm???/min???m??? LV Diastolic Length 2C 8.4 cm LV Systolic Length 2C 6.7 cm LA Volume 93.6 cm??? 18 - 58 / 22 - 52 cm??? LA Volume Index 47.8 cm???/m??? 16 - 28 cm???/m??? DOPPLER AV Peak Velocity 226.6 cm/s AV Peak Gradient 20.5 mmHg AV Mean Velocity 157.6 cm/s AV Mean Gradient 11.1 mmHg AV Velocity Time Integral 44.4 cm LVOT Peak Velocity 114.3 cm/s LVOT Peak Gradient 5.2 mmHg LVOT Velocity Time Integral 21.9 cm LVOT Stroke Volume 85.7 cm??? LVOT Stroke Volume Index 44.0 ml/m??? LVOT Cardiac Index 2712.8 cm???/min???m??? AV Area Cont Eq vti 1.9 cm??? AV Area Cont Eq pk 2.0 cm??? MV Area PHT 3.6 cm??? Mitral E Point Velocity 68.3 cm/s Mitral A Point Velocity 42.3 cm/s Mitral E to A Ratio 1.6 MV Deceleration Time 210.0 ms TR Peak Velocity 267.7 cm/s TR Peak Gradient 28.7 mmHg Right Atrial Pressure 20.0 mmHg Pulmonary Artery Systolic Pressu 48.7 mmHg Right Ventricular Systolic Press 48.7 mmHg PV Peak Velocity 76.1 cm/s PV Peak Gradient 2.3 mmHg FINDINGS Left Ventricle Left ventricular ejection fraction is estimated at 55-60 %. Mildly increased septal wall thickness. Left ventricular cavity size normal. No obvious regional wall motion abnormalities. Right Ventricle Moderate right ventricular dilatation. Mildly reduced right ventricular global systolic function. Moderate pulmonary hypertension. Right Atrium Severe right atrial dilatation. Catheter/pacemaker wire in the right atrial cavity. Left Atrium Severely increased left atrial volume. Mildly increased left atrial area. Mitral Valve Structurally normal mitral valve. No evidence for mitral valve prolapse. No mitral stenosis. Trace mitral regurgitation. Aortic Valve Trileaflet aortic valve. Mild aortic stenosis with a peak gradient of 21 mmHg and a mean gradient of 11trace aortic regurgitation. mmHg. Tricuspid Valve Structurally normal tricuspid valve. No tricuspid stenosis. Moderate tricuspid regurgitation. Pulmonic Valve Pulmonic valve not well visualized. No pulmonic stenosis. No pulmonic regurgitation. Pericardium No pericardial effusion. Aorta Normal size aortic root and proximal ascending aorta. CONCLUSIONS Indication: Abnormal troponin Preserved LV size and function Moderate RV enlargement with reduced function Severe right atrial enlargement Moderate to severe tricuspid regurgitation This patient has had right atrial enlargement with moderate to severe tricuspid regurgitation for over a decade Previewed by: Dr. Benny Roberts MD (Electronically Signed) Final Date: 12 December 2024 14:49
--- NOTE | 2024-12-12 15:34 | P.PN ---
Subjective Progress Note Date: 12/12/24 Principal diagnosis: Reason for follow-up is fever Patient is a 84-year-old male with a past medical history significant for atrial fibrillation hypertension osteoarthritis hypothyroidism presenting to the hospital for evaluation of feeling weak lightheadedness also noted to be febrile with multiple lesion in the liver and history of cervical swelling/lymphadenopathy prompted this consultation. On today's evaluation that is 12/12/2024, patient did have improvement in his fever pattern with a temperature of 99.3 F this afternoon patient denies having any rigors or chills with these episodes of fever he is breathing comfortably no chest pain no cough no abdominal pain did have some diarrhea. Patient white count is 14.98, creatinine is 1.3 CRP and Pro-Ismael is mildly elevated cultures are pending Objective - Vital Signs Vital signs: Vital Signs Temp 100.2 F H 12/12/24 07:53 Pulse 62 12/12/24 07:53 Resp 16 12/12/24 07:53 BP 99/59 12/12/24 07:53 Pulse Ox 94 L 12/12/24 07:53 FiO2 Intake & Output 12/11/24 12/12/24 12/12/24 18:59 06:59 18:59 Intake Total 110 Balance 110 Weight 78.2 kg Intake: Intake, IV Titration 110 Amount Dextrose 5%-0.45% NaCl 1, 60 000 ml @ 50 mls/hr IV . Q20H [facility] Rx#:[id number] cefTRIAXone 2 gm In 50 Sodium Chloride 0.9% 50 ml @ 100 mls/hr IVPB Q24HR [facility] Rx#:[id number] Other: # Voids 3 - Exam GENERAL DESCRIPTION: An elderly male lying in bed in no distress RESPIRATORY SYSTEM: Unlabored breathing , decreased breath sounds at bases HEART: S1 S2 regular rate and rhythm , ABDOMEN: Soft , no tenderness EXTREMITIES: No edema feet - Labs CBC & Chem 7: 12/12/24 05:47 12/12/24 05:47 Labs: Abnormal Lab Results - Last 24 Hours (Table) 12/11/24 12/11/24 12/11/24 Range/Units 13:01 13:24 13:24 WBC 14.1 H (3.8-10.6) k/uL RBC 3.95 L (4.30-5.90) m/uL Hgb 12.0 L (13.0-17.5) gm/dL Hct 36.8 L (39.0-53.0) % MCHC (32.0-37.0) g/dL Plt Count 132 L (150-450) k/uL Immature Gran # (0.00-0.04) X 10*3/uL Neutrophils # 11.9 H (1.3-7.7) k/uL Monocytes # (0.20-1.00) X 10*3/uL Eosinophils # (0.04-0.35) X 10*3/uL ESR (0-20) mm/Hr PT 23.5 H (10.0-12.5) sec INR 2.3 H (<1.2) Sodium (137-145) mmol/L Carbon Dioxide (22-30) mmol/L BUN (9-20) mg/dL Est GFR (CKD-EPI) (>=60) BUN/Creatinine Ratio (12.00-20.00) Ratio Glucose (74-99) mg/dL POC Glucose (mg/dL) 159 H (70-110) mg/dL Total Bilirubin (0.2-1.3) mg/dL AST (17-59) U/L ALT (4-49) U/L Alkaline Phosphatase (38-126) U/L Troponin I (0.000-0.034) ng/mL C-Reactive Protein (0.00-0.80) mg/dL Procalcitonin (0.02-0.50) ng/mL Ur Specific [place] (1.001-1.035) Urine Protein (Negative) Urine Blood (Negative) Urine Mucus (None) /hpf 12/11/24 12/11/24 12/11/24 Range/Units 13:24 14:23 16:18 WBC (3.8-10.6) k/uL RBC (4.30-5.90) m/uL Hgb (13.0-17.5) gm/dL Hct (39.0-53.0) % MCHC (32.0-37.0) g/dL Plt Count (150-450) k/uL Immature Gran # (0.00-0.04) X 10*3/uL Neutrophils # (1.3-7.7) k/uL Monocytes # (0.20-1.00) X 10*3/uL Eosinophils # (0.04-0.35) X 10*3/uL ESR (0-20) mm/Hr PT (10.0-12.5) sec INR (<1.2) Sodium 136 L (137-145) mmol/L Carbon Dioxide 32 H (22-30) mmol/L BUN 28 H (9-20) mg/dL Est GFR (CKD-EPI) (>=60) BUN/Creatinine Ratio (12.00-20.00) Ratio Glucose 146 H (74-99) mg/dL POC Glucose (mg/dL) (70-110) mg/dL Total Bilirubin 1.7 H (0.2-1.3) mg/dL AST 121 H (17-59) U/L ALT 92 H (4-49) U/L Alkaline Phosphatase 200 H (38-126) U/L Troponin I 0.043 H* (0.000-0.034) ng/mL C-Reactive Protein (0.00-0.80) mg/dL Procalcitonin (0.02-0.50) ng/mL Ur Specific [place] >1.050 H (1.001-1.035) Urine Protein Trace H (Negative) Urine Blood Small H (Negative) Urine Mucus Rare H (None) /hpf 12/12/24 12/12/24 12/12/24 Range/Units 05:47 05:47 05:47 WBC 14.98 H (3.8-10.6) k/uL RBC 3.50 L (4.30-5.90) m/uL Hgb 10.6 L (13.0-17.5) gm/dL Hct 33.5 L (39.0-53.0) % MCHC 31.6 L (32.0-37.0) g/dL Plt Count 127 L (150-450) k/uL Immature Gran # 0.06 H (0.00-0.04) X 10*3/uL Neutrophils # 11.60 H (1.3-7.7) k/uL Monocytes # 1.39 H (0.20-1.00) X 10*3/uL Eosinophils # 0.02 L (0.04-0.35) X 10*3/uL ESR 39 H (0-20) mm/Hr PT (10.0-12.5) sec INR (<1.2) Sodium (137-145) mmol/L Carbon Dioxide (22-30) mmol/L BUN 29.1 H (9-20) mg/dL Est GFR (CKD-EPI) 54 L (>=60) BUN/Creatinine Ratio 22.38 H (12.00-20.00) Ratio Glucose 149 H (74-99) mg/dL POC Glucose (mg/dL) (70-110) mg/dL Total Bilirubin (0.2-1.3) mg/dL AST (17-59) U/L ALT (4-49) U/L Alkaline Phosphatase (38-126) U/L Troponin I (0.000-0.034) ng/mL C-Reactive Protein 16.20 H (0.00-0.80) mg/dL Procalcitonin 2.95 H (0.02-0.50) ng/mL Ur Specific [place] (1.001-1.035) Urine Protein (Negative) Urine Blood (Negative) Urine Mucus (None) /hpf 12/12/24 Range/Units 05:47 WBC (3.8-10.6) k/uL RBC (4.30-5.90) m/uL Hgb (13.0-17.5) gm/dL Hct (39.0-53.0) % MCHC (32.0-37.0) g/dL Plt Count (150-450) k/uL Immature Gran # (0.00-0.04) X 10*3/uL Neutrophils # (1.3-7.7) k/uL Monocytes # (0.20-1.00) X 10*3/uL Eosinophils # (0.04-0.35) X 10*3/uL ESR (0-20) mm/Hr PT 26.6 H (10.0-12.5) sec INR 2.7 H (<1.2) Sodium (137-145) mmol/L Carbon Dioxide (22-30) mmol/L BUN (9-20) mg/dL Est GFR (CKD-EPI) (>=60) BUN/Creatinine Ratio (12.00-20.00) Ratio Glucose (74-99) mg/dL POC Glucose (mg/dL) (70-110) mg/dL Total Bilirubin (0.2-1.3) mg/dL AST (17-59) U/L ALT (4-49) U/L Alkaline Phosphatase (38-126) U/L Troponin I (0.000-0.034) ng/mL C-Reactive Protein (0.00-0.80) mg/dL Procalcitonin (0.02-0.50) ng/mL Ur Specific [place] (1.001-1.035) Urine Protein (Negative) Urine Blood (Negative) Urine Mucus (None) /hpf Assessment and Plan (1) Fever Current Visit: Yes Status: Acute Code(s): R50.9 - FEVER, UNSPECIFIED SNOMED Code(s): 453128484 (2) SIRS (systemic inflammatory response syndrome) Current Visit: Yes Status: Acute Code(s): R65.10 - SIRS OF NON-INFECTIOUS ORIGIN W/O ACUTE ORGAN DYSFUNCTION SNOMED Code(s): 015615579 Plan: 1-Patient presented to hospital with weakness and fall x 2 in this patient who did have fever as well as elevated white count meeting currently for SIRS source and likely hematological malignancy as the patient did have evidence of cervical lymphadenopathy and multiple liver masses clinically not behaving as a liver abscess and no other obvious focus of infection on investigation or clinical examinations so far 2-blood culture has been obtained, did have elevated inflammatory markers 3-patient did have some improvement the fever pattern we will continue empiric Rocephin and Flagyl while awaiting further workup to be completed Dictation was produced using [employer] dictation software. please excuse any g rammatical, word or spelling errors. Time with Patient: Less than 30
[2024-12-12] MEDS: WARFARIN 3 MG TAB PO ONE (17:04)
--- NOTE | 2024-12-12 20:27 | PN ---
PROGRESS NOTE DATE OF SERVICE: 12/12/2024 SUBJECTIVE: This 84-year-old gentleman admitted with left submandibular swelling as well as multiple liver lesions, possibly mets. Also had fever and weakness also. No chest pain. No palpitation. Multiple consultants are following the patient closely. CT scan has been ordered. 2D echo showed moderate to severe tricuspid regurgitation. PAST MEDICAL HISTORY: Reviewed. REVIEW OF SYSTEMS: A 14-point review of systems is negative except as mentioned earlier. CURRENT MEDICATIONS: Reviewed. PHYSICAL EXAMINATION: VITAL SIGNS: Pulse is 73, blood pressure 110/74, respirations 16. CHEST: Few scattered rhonchi. ABDOMEN: Soft. NERVOUS SYSTEM: No focal deficits. Left neck swelling present. LABORATORY DATA: WBC 14.98. Procalcitonin is elevated. ASSESSMENT: 1. Fever, for evaluation, rule out sepsis with flu-like syndrome with elevated procalcitonin. 2. Left neck swelling with multiple hepatic lesions, possibly metastatic disease, primary unknown. 3. Elevated WBC. 4. Atrial fibrillation. 5. History of degenerative joint disease. 6. History of pacemaker. 7. Severe left atrial enlargement and moderate right ventricular enlargement as well as ujljrsjj-[id number] tricuspid regurgitation. RECOMMENDATIONS: Recommend to continue current management and continue symptomatic treatment. Otherwise, follow the cultures. Continue with empiric antibiotics. Closely follow with multiple consultants. CT scan, possible biopsy. Monitor PT/INR closely per pharmacy. Further recommendations to follow. TAMAR / TYLERN: [id number] /
[2024-12-12] MEDS: ATORVASTATIN 20 MG TAB PO SCH (22:42)
[2024-12-13 05:00] LABS: Prothrombin Time 20.5 sec (10.0-12.5)
--- NOTE | 2024-12-13 07:46 | P.CNNES ---
History of Present Illness Consult date: 12/12/24 Requesting physician: Tram Valencia Reason for Consult: Code stroke History of Present Illness: Patient is a 84-year-old right-handed male came to the hospital by ambulance yesterday at 12:08 PM for acute onset of gait imbalance.. 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 When he tried to sit on the side of the bed, he couldn't sit straight and started leaning to the right. While going to the bathroom, he fell on the floor. He called his , who assisted him get into the bed. He then got up again at 5 AM and went to the bathroom. Once he was finished urinating in the urinal, he was washing hands and again lost balance. He clutched to the sink and he still fell to the floor. Patient stayed in bed. Right after 8 AM, he called his family doctor, Jodi Tracey and patient they made an urgent appointment at their office at 10:40 AM. When he went to his PCP office, he did not look right, therefore ambulance was called and patient was brought to the hospital. When he arrived to the hospital, he was having some slurred speech (described as little trouble with speech clarity). This morning at 10 AM, the slurred speech has resolved. Patient denies any focal weakness or numbness involving the arms or legs. Patient denies any vertigo, or tinnitus. Denies any new visual symptoms. Patient admits to having slight neck pain when he moves his neck to the extreme but that has been going on for years, nothing new. Vital signs on arrival blood pressure 121/80, pulse rate 77 temperature 103.3. Repeat temperature 102.7. Orthostatics were checked, in which supine blood pressure 99/59, sitting was 114/65 and standing 122/69. Orthostatics negative. Blood test shows WBC 14.1 hemoglobin 12.0, platelets 132. INR 2.3. Sodium 136 potassium 4.3, normal renal functions. AST is 121 ALT 92. Troponin is mildly elevated the second 1. CRP 16.2, UA negative. Influenza, RSV and coronavirus PCR negative. Chest x-ray showed no evidence for acute pulmonary process. CT abdomen pelvis revealed multiple nonspecific hypoattenuating lesions throughout the liver. Metastatic disease is not excluded. Correlate with ultrasound to exclude solid lesions given timing of contrast bolus. Correlate for urinary bladder cystitis. EKG showed electronic atrial pacemaker. Right bundle branch block. Repeat EKG showed wide QRS rhythm. Liver ultrasound revealed multiple solid masses with hypervascularity. Suspect metastatic disease. CT head showed no acute intracranial hemorrhage or midline shift. There is diffuse age-related cerebral atrophy and chronic small vessel ischemic change noted. I personally reviewed CT head, agree with the findings. CTA of head and neck report reviewed. Patient denies any history of hypertension or diabetes. Denies any tobacco or alcohol use. Review of Systems All pertinent positive and negative review of systems mentioned in the HPI, otherwise unremarkable. Past Medical History Past Medical History: Atrial Fibrillation, Hypertension, Osteoarthritis (OA), Thyroid Disorder Additional Past Medical History / Comment(s): right shoulder pain currently, thinks probably hurt it working out History of Any Multi-Drug Resistant Organisms: None Reported Past Surgical History: Adenoidectomy, Pacemaker, Tonsillectomy Additional Past Surgical History / Comment(s): vasectomy, bashir hydrocele repair, colonoscopies Past Anesthesia/Blood Transfusion Reactions: Previous Problems w/ Anesthesia Additional Past Anesthesia/Blood Transfusion Reaction / Comment(s): was told by mom when tonsils removed turned blue w/ether Type of Cardiac Device: Permanent Pacemaker Device Placement Date:: 2012 Smoking Status: Never smoker Medications and Allergies Home Medications Medication Instructions Recorded Confirmed Type Digoxin [Lanoxin] 125 mcg PO DAILY 12/10/22 12/11/24 History Levothyroxine Sodium [Synthroid] 50 mcg PO DAILY 12/10/22 12/11/24 History Warfarin Sodium 5 mg PO DAILY@1600 12/10/22 12/11/24 History atenoloL [Tenormin] 25 mg PO DAILY@1600 12/10/22 12/11/24 History Allergies Allergy/AdvReac Type Severity Reaction Status Date / Time No Known Allergies Allergy Verified 12/11/24 13:44 Physical Examination - Vital Signs Vital Signs: Vital Signs Temp Pulse Pulse Pulse Pulse Resp BP 12/12/24 07:53 100.2 F H 73 78 62 16 12/12/24 06:38 101.3 F H 12/12/24 01:06 98.6 F 66 16 12/11/24 22:00 100.2 F H 12/11/24 18:44 100.2 F H 60 18 12/11/24 18:32 73 73 73 12/11/24 16:16 99.8 F H 61 18 118/72 12/11/24 13:55 102.7 F H 60 20 107/55 BP BP BP Pulse Ox 12/12/24 07:53 114/65 122/69 99/59 94 L 12/12/24 06:38 12/12/24 01:06 102/64 94 L 12/11/24 22:00 12/11/24 18:44 123/78 95 12/11/24 18:32 131/79 138/81 113/68 12/11/24 16:16 97 12/11/24 13:55 95 Intake and Output 12/11/24 12/12/24 12/12/24 22:59 06:59 14:59 Intake Total 110 Balance 110 Intake: Intake, IV Titration 110 Amount Dextrose 5%-0.45% NaCl 1, 60 000 ml @ 50 mls/hr IV . Q20H [facility] Rx#:[id number] cefTRIAXone 2 gm In 50 Sodium Chloride 0.9% 50 ml @ 100 mls/hr IVPB Q24HR [facility] Rx#:[id number] Other: # Voids 3 Weight 78.2 kg Patient is an elderly male, very pleasant, in no acute distress. Patient is alert awake oriented to time place and person. Speech and language functions are normal. Patient can name and repeat very well. No aphasia or dysarthria. Attention, concentration and fund of knowledge is adequate. On cranial nerve examination, pupils are equal, round and reacting to light, visual gilmore are full on confrontation, with no neglect on double simultaneous stimulation. Extraocular muscles are intact with no nystagmus. Face is symmetric, although at times patient appears to have slight flattening of the right nasolabial fold. His tongue protrudes to the midline. Palatal elevation and sensation normal, hearing and shoulder shrug normal, facial sensation normal. On muscle strength testing, there is no pronator drift and the strength is normal in arms and legs distally and proximally. Deep tendon reflexes are symmetric but hypoactive and plantars downgoing. Sensory to touch is equal with no neglect on double simultaneous stimulation. Cerebellar function showed no ataxia for [id number] testing, but he has moderate tremor bilaterally. Patient has mild to moderate tremors of outstretched hands. No dysdiadochokinesia. No ataxia for [id number] testing on either side. Tone and bulk of muscles normal. Gait deferred.. On general examination, there is no carotid bruit or murmur, S1-S2 audible. Chest is clear on consultation. Abdomen is soft nontender. No organomegaly, bowel sounds present. Peripheral pulses are present. No peripheral edema. Patient does have lymphadenopathy and prominent lymph node better the left man dible. Results - Laboratory Findings CBC and BMP: 12/12/24 05:47 12/12/24 05:47 Abnormal Lab Findings: Abnormal Labs 12/11/24 12/11/24 12/11/24 13:01 13:24 13:24 WBC 14.1 H RBC 3.95 L Hgb 12.0 L Hct 36.8 L MCHC Plt Count 132 L Immature Gran # Neutrophils # 11.9 H Monocytes # Eosinophils # ESR PT 23.5 H INR 2.3 H Sodium Carbon Dioxide BUN Est GFR (CKD-EPI) BUN/Creatinine Ratio Glucose POC Glucose (mg/dL) 159 H Total Bilirubin AST ALT Alkaline Phosphatase Troponin I C-Reactive Protein Procalcitonin Ur Specific [place] Urine Protein Urine Blood Urine Mucus 12/11/24 12/11/24 12/11/24 13:24 14:23 16:18 WBC RBC Hgb Hct MCHC Plt Count Immature Gran # Neutrophils # Monocytes # Eosinophils # ESR PT INR Sodium 136 L Carbon Dioxide 32 H BUN 28 H Est GFR (CKD-EPI) BUN/Creatinine Ratio Glucose 146 H POC Glucose (mg/dL) Total Bilirubin 1.7 H AST 121 H ALT 92 H Alkaline Phosphatase 200 H Troponin I 0.043 H* C-Reactive Protein Procalcitonin Ur Specific [place] >1.050 H Urine Protein Trace H Urine Blood Small H Urine Mucus Rare H 12/12/24 12/12/24 12/12/24 05:47 05:47 05:47 WBC 14.98 H RBC 3.50 L Hgb 10.6 L Hct 33.5 L MCHC 31.6 L Plt Count 127 L Immature Gran # 0.06 H Neutrophils # 11.60 H Monocytes # 1.39 H Eosinophils # 0.02 L ESR 39 H PT INR Sodium Carbon Dioxide BUN 29.1 H Est GFR (CKD-EPI) 54 L BUN/Creatinine Ratio 22.38 H Glucose 149 H POC Glucose (mg/dL) Total Bilirubin AST ALT Alkaline Phosphatase Troponin I C-Reactive Protein 16.20 H Procalcitonin 2.95 H Ur Specific [place] Urine Protein Urine Blood Urine Mucus 12/12/24 05:47 WBC RBC Hgb Hct MCHC Plt Count Immature Gran # Neutrophils # Monocytes # Eosinophils # ESR PT 26.6 H INR 2.7 H Sodium Carbon Dioxide BUN Est GFR (CKD-EPI) BUN/Creatinine Ratio Glucose POC Glucose (mg/dL) Total Bilirubin AST ALT Alkaline Phosphatase Troponin I C-Reactive Protein Procalcitonin Ur Specific [place] Urine Protein Urine Blood Urine Mucus Assessment and Plan Assessment: * Acute onset of ataxia and gait imbalance, unclear cause. Patient's current neurological examination shows no significant focality. Patient had high fever on presentation,, which may be the cause of gait imbalance and falls. * Febrile illness, with leukocytosis, unclear cause. Possible SIRS * Multiple hepatic lesions and lymphadenopathy, rule out malignancy. * History of atrial fibrillation, on warfarin, INR therapeutic * Borderline elevated liver enzymes * Elevated troponins * Benign essential tremors Plan: * Patient has presented with febrile illness, resulting in weakness and falls. Examination is nonfocal. Patient has atrial fibrillation, but on warfarin, with therapeutic INR. Doubt acute CVA. * 2-D echo revealed preserved LV size and systolic function with EF 55-60%. Mildly increased septal wall thickness. No obvious regional wall motion abnormalities. Severely increased left atrial volume. Severe right atrial dilation. Trace MR. Mildly S. Moderate to severe TR. * CTA of head and neck revealed no evidence of dissection of the cervical internal carotid arteries or vertebral arteries or any evidence of significant stenosis at the carotid bifurcations. No evidence of high-grade stenosis or intracranial aneurysm. Redemonstration of approximate 4 ovoid lesions within the left submandibular/submental space from recent CT neck 12/09/2024. Again may represent benign or malignant tumor versus abnormal lymphadenopathy/metastasis. Tissue sampling is recommended again. Additional enlarged left jugular lymph node measuring up to 1.1 cm suspicious for possible metastasis. * Hematology oncology on board for above abnormalities. * CT head with contrast revealed no abnormal enhancing masses to suggest metastatic disease of the brain. * Orthostatics are negative. * Cardiology on board for elevated troponins. * ID also following. Patient currently on ceftriaxone and Flagyl. Blood cultures so far negative. * Continue warfarin. * We will check B12, folate, TSH and A1c. * We will follow sporadically. * Dr. Ryan Finn starting neurology service from the morning. * Thank you for the consult.
[2024-12-13 09:24] LABS: Basophils # (A) 0.03 X 10*3/uL (0.00-0.10); Basophils % (A) 0.3 %; Eosinophils # (A) 0.02 X 10*3/uL (0.04-0.35); Eosinophils % (A) 0.2 %; HCT 32.4 % (39.6-50.0); HGB 10.3 g/dL (13.0-17.0); Lymphocytes # (A) 1.45 X 10*3/uL (0.90-5.00); Lymphocytes % (A) 12.5 %; MCH 30.3 pg (27.0-32.0); MCHC 31.8 g/dL (32.0-37.0); MCV 95.3 FL (80.0-97.0); Mean Platelet Volume 12.1 FL (9.5-12.2); Monocytes # (A) 1.22 X 10*3/uL (0.20-1.00); Monocytes % (A) 10.6 %; NRBC Per 100 WBC 0 X 10*3/uL (0.00-0.01); Neutrophils # (A) 8.78 X 10*3/uL (1.80-7.70); Neutrophils % (A) 75.9 %; Platelet Count 117 X 10*3/uL (140-440); RDW 13.7 % (11.5-14.5); WBC 11.56 X 10*3/uL (4.50-10.00)
[2024-12-13 09:43] LABS: BUN/Creat Ratio 23.73 Ratio (12.00-20.00); Blood Urea Nitrogen 26.1 mg/dL (9.0-27.0); Calcium 8.5 mg/dL (8.7-10.3); Chloride 105 mmol/L (96-109); Glucose 131 mg/dL (70-110); Potassium 3.9 mmol/L (3.5-5.5); Sodium 140 mmol/L (135-145)
--- NOTE | 2024-12-13 16:27 | P.PN ---
Subjective Progress Note Date: 12/13/24 Principal diagnosis: Reason for follow-up is fever Patient is a 84-year-old male with a past medical history significant for atrial fibrillation hypertension osteoarthritis hypothyroidism presenting to the hospital for evaluation of feeling weak lightheadedness also noted to be febrile with multiple lesion in the liver and history of cervical swelling/lymphadenopathy prompted this consultation. On today's evaluation that is 12/13/2024, Patient did have improvement in his fever pattern with elevated pressure of 99.5 this afternoon patient is breathing comfortably no chest pain shortness of breath or cough no abdominal pain did have some diarrhea yesterday but none today. Patient white. 11.56, creatinine is 1.1 cultures are currently pending Objective - Vital Signs Vital signs: Vital Signs Temp 99.7 F H 12/13/24 07:16 Pulse 63 12/13/24 07:16 Resp 17 12/13/24 07:16 BP 125/69 12/13/24 07:16 Pulse Ox 92 L 12/13/24 07:16 FiO2 Intake & Output 12/12/24 12/13/24 12/13/24 18:59 06:59 18:59 Intake Total 1430 Balance 1430 Intake: Intake, IV Titration 650 Amount Dextrose 5%-0.45% NaCl 1, 600 000 ml @ 50 mls/hr IV . Q20H [facility] Rx#:[id number] cefTRIAXone 2 gm In 50 Sodium Chloride 0.9% 50 ml @ 100 mls/hr IVPB Q24HR [facility] Rx#:[id number] Oral 780 Other: # Voids 3 2 - Exam GENERAL DESCRIPTION: An elderly male lying in bed in no distress RESPIRATORY SYSTEM: Unlabored breathing , decreased breath sounds at bases HEART: S1 S2 regular rate and rhythm , ABDOMEN: Soft , no tenderness EXTREMITIES: No edema feet - Labs CBC & Chem 7: 12/13/24 04:38 12/13/24 04:38 Labs: Abnormal Lab Results - Last 24 Hours (Table) 12/12/24 12/13/24 12/13/24 Range/Units 05:47 04:38 04:38 WBC 11.56 H (4.50-10.00) X 10*3/uL RBC 3.40 L (4.40-5.60) X 10*6/uL Hgb 10.3 L (13.0-17.0) g/dL Hct 32.4 L (39.6-50.0) % MCHC 31.8 L (32.0-37.0) g/dL Plt Count 117 L (140-440) X 10*3/uL Immature Gran # 0.06 H (0.00-0.04) X 10*3/uL Neutrophils # 8.78 H (1.80-7.70) X 10*3/uL Monocytes # 1.22 H (0.20-1.00) X 10*3/uL Eosinophils # 0.02 L (0.04-0.35) X 10*3/uL PT 20.5 H (10.0-12.5) sec INR 2.0 H (<1.2) BUN/Creatinine Ratio (12.00-20.00) Ratio Glucose (70-110) mg/dL Hemoglobin A1c 6.2 H (<=6.0) % Calcium (8.7-10.3) mg/dL 12/13/24 Range/Units 04:38 WBC (4.50-10.00) X 10*3/uL RBC (4.40-5.60) X 10*6/uL Hgb (13.0-17.0) g/dL Hct (39.6-50.0) % MCHC (32.0-37.0) g/dL Plt Count (140-440) X 10*3/uL Immature Gran # (0.00-0.04) X 10*3/uL Neutrophils # (1.80-7.70) X 10*3/uL Monocytes # (0.20-1.00) X 10*3/uL Eosinophils # (0.04-0.35) X 10*3/uL PT (10.0-12.5) sec INR (<1.2) BUN/Creatinine Ratio 23.73 H (12.00-20.00) Ratio Glucose 131 H (70-110) mg/dL Hemoglobin A1c (<=6.0) % Calcium 8.5 L (8.7-10.3) mg/dL Microbiology - Last 24 Hours (Table) 12/11/24 13:24 Blood Culture - Preliminary Blood Assessment and Plan (1) Fever Current Visit: Yes Status: Acute Code(s): R50.9 - FEVER, UNSPECIFIED SNOMED Code(s): 181620607 (2) SIRS (systemic inflammatory response syndrome) Current Visit: Yes Status: Acute Code(s): R65.10 - SIRS OF NON-INFECTIOUS ORIGIN W/O ACUTE ORGAN DYSFUNCTION SNOMED Code(s): 354821651 Plan: 1-Patient presented to hospital with weakness and fall x 2 in this patient who did have fever as well as elevated white count meeting currently for SIRS source and likely hematological malignancy as the patient did have evidence of cervical lymphadenopathy and multiple liver masses clinically not behaving as a liver abscess and no other obvious focus of infection on investigation or clinical examinations so far 2-blood culture has been obtained, which are currently pending 3-patient did have improvement in the fever but white count is trending down we will continue with the Rocephin and Flagyl and monitor clinical course closely Dictation was produced using [employer] dictation software. please excuse any grammatical, word or spelling errors. Time with Patient: Less than 30
[2024-12-13] MEDS: WARFARIN 3 MG TAB PO ONE (17:49)
--- NOTE | 2024-12-13 23:54 | PN ---
PROGRESS NOTE DATE OF SERVICE: 12/13/2024 SUBJECTIVE: This 84-year-old gentleman admitted with left submandibular swelling, liver lesions, and also running fever. No chest pain. No palpitation. Biopsy is pending. PHYSICAL EXAMINATION: VITAL SIGNS: Pulse is 63, blood pressure 125/60, and respirations 17. CHEST: Clear to auscultation. CARDIOVASCULAR: S1, S2. ABDOMEN: Soft. Left submandibular swelling. LABORATORY DATA: WBC 7.6. Cultures are negative so far. ASSESSMENT: 1. Fever, for evaluation, rule out sepsis with flu-like syndrome and elevated procalcitonin. 2. Left neck swelling with multiple hepatic lesions, possibly metastatic disease. 3. Elevated WBC. 4. Multiple complex medical issues. Please refer to the previous chart. RECOMMENDATIONS AND DISCUSSION: This 84-year-old gentleman presented with multiple complex medical issues. We will monitor the patient closely. Continue the current management and continue symptomatic treatment. Continue with empiric antibiotics. Follow closely with Infectious Disease and Hematology, Oncology. Possible biopsy. Guarded prognosis. Further recommendations to follow. MMODL / IJN: [id number] /
[2024-12-14 04:42] LABS: INR 1.8 (<1.2); Prothrombin Time 18.6 sec (10.0-12.5)
[2024-12-14 09:23] LABS: BUN/Creat Ratio 21.18 Ratio (12.00-20.00); Blood Urea Nitrogen 23.3 mg/dL (9.0-27.0); Calcium 8.5 mg/dL (8.7-10.3); Carbon Dioxide 25.5 mmol/L (21.6-31.8); Chloride 106 mmol/L (96-109); Glucose 110 mg/dL (70-110); Potassium 4.1 mmol/L (3.5-5.5); Sodium 141 mmol/L (135-145)
[2024-12-14 10:17] LABS: Basophils # (A) 0.03 X 10*3/uL (0.00-0.10); Basophils % (A) 0.3 %; Eosinophils # (A) 0.06 X 10*3/uL (0.04-0.35); Eosinophils % (A) 0.7 %; HCT 30.6 % (39.6-50.0); HGB 9.7 g/dL (13.0-17.0); Lymphocytes # (A) 1.91 X 10*3/uL (0.90-5.00); Lymphocytes % (A) 21.2 %; MCH 30.4 pg (27.0-32.0); MCHC 31.7 g/dL (32.0-37.0); MCV 95.9 FL (80.0-97.0); Monocytes # (A) 1.09 X 10*3/uL (0.20-1.00); Monocytes % (A) 12.1 %; NRBC Per 100 WBC 0 X 10*3/uL (0.00-0.01); Neutrophils # (A) 5.84 X 10*3/uL (1.80-7.70); Neutrophils % (A) 64.9 %; Platelet Count 155 X 10*3/uL (140-440); RBC 3.19 X 10*6/uL (4.40-5.60); RDW 13.6 % (11.5-14.5)
--- NOTE | 2024-12-14 11:32 | US ---
EXAMINATION TYPE: US biopsy lymph node DATE OF EXAM: 12/14/2024 11:28 AM COMPARISON: None. CLINICAL INDICATION: Male, 84 years old with history of enlarged lymph node; , thyroid nodule TECHNIQUE/FINDINGS: The procedure was explained to the patient. The risks, complications, benefits and alternatives were discussed and any questions were answered. Informed consent was obtained. Patient was placed supin e on the ultrasound table and prepped and draped in the usual sterile fashion. Utilizing a 18 gauge needle, 3 passes were made into the requested left submandibular lymph node. Patient was stable throughout the procedure. Pathology is pending. All elements of maximal barrier technique were utilized. IMPRESSION: 1. Successful ultrasound guided core biopsy left submandibular lymph node. [facility], , 12/14/2024 11:30 AM
[2024-12-14 14:13] VITALS: BP 136/76; PULSE 65; RESP 17; TEMP 97.3
--- NOTE | 2024-12-14 16:34 | P.PN ---
Subjective Progress Note Date: 12/14/24 Principal diagnosis: Reason for follow-up is fever Patient is a 84-year-old male with a past medical history significant for atrial fibrillation hypertension osteoarthritis hypothyroidism presenting to the hospital for evaluation of feeling weak lightheadedness also noted to be febrile with multiple lesion in the liver and history of cervical swelling/lymphadenopathy prompted this consultation. On today's evaluation that is 12/14/2024, patient has been afebrile, patient is breathing comfortably and is currently on room air, patient denies having any significant cough no chest pain, patient denies nausea vomiting or diarrhea and no abdominal pain. Patient white normalized to 9.0, creatinine is 1.1 Objective - Vital Signs Vital signs: Vital Signs Temp 99.1 F 12/14/24 06:58 Pulse 61 12/14/24 11:27 Resp 12 12/14/24 11:27 BP 117/69 12/14/24 11:27 Pulse Ox 93 L 12/14/24 11:27 FiO2 Intake & Output 12/13/24 12/14/24 12/14/24 18:59 06:59 18:59 Intake Total 200 Balance 200 Intake: Oral 200 Other: # Voids 4 2 - Exam GENERAL DESCRIPTION: An elderly male lying in bed in no distress RESPIRATORY SYSTEM: Unlabored breathing , decreased breath sounds at bases HEART: S1 S2 regular rate and rhythm , ABDOMEN: Soft , no tenderness EXTREMITIES: No edema feet - Labs CBC & Chem 7: 12/14/24 04:16 12/14/24 04:16 Labs: Abnormal Lab Results - Last 24 Hours (Table) 12/14/24 12/14/24 12/14/24 Range/Units 04:16 04:16 04:16 RBC 3.19 L (4.40-5.60) X 10*6/uL Hgb 9.7 L (13.0-17.0) g/dL Hct 30.6 L (39.6-50.0) % MCHC 31.7 L (32.0-37.0) g/dL Immature Gran # 0.07 H (0.00-0.04) X 10*3/uL Monocytes # 1.09 H (0.20-1.00) X 10*3/uL PT 18.6 H (10.0-12.5) sec INR 1.8 H (<1.2) BUN/Creatinine Ratio 21.18 H (12.00-20.00) Ratio Calcium 8.5 L (8.7-10.3) mg/dL Microbiology - Last 24 Hours (Table) 12/12/24 21:45 Stool Culture - Preliminary Stool 12/11/24 13:24 Blood Culture - Preliminary Blood Assessment and Plan (1) Fever Current Visit: Yes Status: Acute Code(s): R50.9 - FEVER, UNSPECIFIED SNOMED Code(s): 590916499 (2) SIRS (systemic inflammatory response syndrome) Current Visit: Yes Status: Acute Code(s): R65.10 - SIRS OF NON-INFECTIOUS ORIGIN W/O ACUTE ORGAN DYSFUNCTION SNOMED Code(s): 776514880 Plan: 1-Patient presented to hospital with weakness and fall x 2 in this patient who did have fever as well as elevated white count meeting currently for SIRS source and likely hematological malignancy as the patient did have evidence of cervical lymphadenopathy and multiple liver masses clinically not behaving as a liver abscess and no other obvious focus of infection on investigation or clinical examinations so far 2-blood culture has been obtained, which are negative so far 3-patient did have resolution of his fever the patient white count has normalized culture has been negative he is status post lymph node biopsy feeling better wants to go home with considered oral Ceftin and Flagyl on discharge and close outpatient follow-up discussed with the HEAD STOCK OPERATOR for admitting team Dictation was produced using [employer] dictation software. please excuse any grammatical, word or spelling errors. Time with Patient: Less than 30
--- NOTE | 2024-12-17 10:49 | P.DS ---
Providers Date of admission: 12/11/24 15:04 Expected date of discharge: 12/14/24 Attending physician: Elijah Espinoza MD Consults: 12/11/24 14:35 Consult Physician Routine Consulting Provider: Rabia Vega Consult Reason/Comments: Code stroke Do you want consulting provider notified?: Yes, Notify in am Consult Physician Routine Consulting Provider: Doug Craig Consult Reason/Comments: new masses Do you want consulting provider notified?: Yes, Notify in am 12/11/24 16:30 Consult Physician Routine Consulting Provider: Billy Vo Consult Reason/Comments: sepsis Do you want consulting provider notified?: Yes 12/11/24 16:31 Consult Physician Routine Consulting Provider: Henrik Winkler Consult Reason/Comments: afib Do you want consulting provider notified?: Yes Primary care physician: Mic Tracey Hospital Course: Final diagnosis Fever, with flulike syndrome and elevated procalcitonin with SIRS, present on admission, 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 Patient will follow-up with Dr. Tracey in the outpatient setting upon discharge. Patient is to continue with antibiotics in the form of Flagyl and Ceftin and close outpatient follow-up with primary care provider as well as cardiology as scheduled. Total time taken is greater than 35 minutes. Hospital course This is a 84-year-old male who was recently admitted with fever and flulike symptoms with SIRS criteria and an elevated procalcitonin being closely monitored with multiple consultations. Patient is status post lymph node biopsy which pathology is currently pending as patient had significant left neck swelling and also noted to have multiple hepatic lesions with concerns of possible metastatic disease. Patient showing clinical improvement and will continue on oral antibiotics per ID recommendations recommending close outpatient follow-up. White count has normalized and patient's cultures remain negative. Patient has been cleared by consultations and would like to go home. Please refer to other consultation notes for further HPI. Currently no reports of chest pain, shortness of breath, or palpitations. Patient is afebrile. No reports of nausea or vomiting and patient is tolerating diet. Patient will be discharged home today. Guarded prognosis Physical exam: Gen: This is a 84-year-old male who is awake, alert and oriented x 3, well- developed, elderly appearing HEENT: Head is atraumatic, normocephalic. Pupils equal, round. Sclerae is anicteric. NECK: Supple. No JVD. No lymphadenopathy. No thyromegaly. LUNGS: Diminished breath sounds bilaterally otherwise clear to auscultation. No wheezes or rhonchi. No intercostal retractions. HEART: S1, S2 are muffled ABDOMEN: Soft. Thin. Bowel sounds are present. No masses. No tenderness. EXTREMITIES: No pedal edema. No calf tenderness. NEUROLOGICAL: Patient is awake, alert and oriented x3. Cranial nerves 2 through 12 are grossly intact. Please refer to medication reconciliation sheet for a list of medications. The impression and plan of care has been dictated by Gisela Norris Nurse Pra ctitioner as directed. Dr. Pat MD I have performed a history and examination and MDM of this patient, discussed the same with the dictator, and agree with the dictator's assessment and plan as written ,documented as a scribe. Based on total visit time, I have performed more than 50% of the visit. Patient Condition at Discharge: Stable Plan - Discharge Summary New Discharge Prescriptions: New Atorvastatin [Lipitor] 20 mg PO HS #30 tab metroNIDAZOLE [Flagyl] 500 mg PO TID 10 Days #30 tab Acetaminophen Tab [Tylenol] 650 mg PO Q6HR PRN tab PRN Reason: Mild Pain Or Fever > 100.5 cefuroxime axetiL [Ceftin] 500 mg PO BID 10 Days #20 tab Continue atenoloL [Tenormin] 25 mg PO DAILY@1600 Levothyroxine Sodium [Synthroid] 50 mcg PO DAILY Warfarin Sodium 5 mg PO DAILY@1600 Digoxin [Lanoxin] 125 mcg PO DAILY Discharge Medication List Digoxin [Lanoxin] 125 mcg PO DAILY 12/10/22 [History] Levothyroxine Sodium [Synthroid] 50 mcg PO DAILY 12/10/22 [History] Warfarin Sodium 5 mg PO DAILY@1600 12/10/22 [History] atenoloL [Tenormin] 25 mg PO DAILY@1600 12/10/22 [History] Acetaminophen Tab [Tylenol] 650 mg PO Q6HR PRN tab 12/14/24 [Rx] Atorvastatin [Lipitor] 20 mg PO HS #30 tab 12/14/24 [Rx] cefuroxime axetiL [Ceftin] 500 mg PO BID 10 Days #20 tab 12/14/24 [Rx] metroNIDAZOLE [Flagyl] 500 mg PO TID 10 Days #30 tab 12/14/24 [Rx] Follow up Appointment(s)/Referral(s): Mic Tracey MD [Primary Care Provider] - 12/17/24 2:10 pm Bautista Holloway MD [STAFF PHYSICIAN] - 12/25/24 2:30 pm Ambulatory/Diagnostic Orders: Complete Blood Count w/diff [LAB.AMB] Time Frame: 3 Days, Location: [facility] Patient Instructions/Handouts: Cefuroxime (By mouth), Metronidazole (By mouth), Atorvastatin (By mouth) Activity/Diet/Wound Care/Special Instructions: Activity limited until follow-up Follow-up with primary care provider on discharge Follow-up outpatient regarding biopsy results Follow-up hematology/oncology outpatient Continue taking medications as prescribed Repeat labs in the next 2 to 3 days Discharge Disposition: HOME SELF-CARE
--- NOTE | 2024-12-23 11:45 | CDI ---
Documentation Clarification Form Date: 12/23/2024 From: Karine Jewell Admit Date: 12/11/2024 03:04:00 PM Patient Name: Baljit Boyd Visit Number: [id number] Discharge Date: 12/14/2024 05:13:00 PM ATTENTION: The Clinical Documentation Specialists (CDI) and [facility] Coding Staff appreciate your assistance in clarifying documentation. Please respond to the clarification below the line at the bottom and electronically sign. The CDI & [facility] Coding staff will review the response and follow-up if needed. Please note: Queries are made part of the Legal Health Record. If you have any questions, please contact the author of this message via ITS. 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 Additional clarification regarding the neoplasm is requested. History/risk factors: Clinical Indicators: Positive path report Radiology: abnormal lymphadenopathy / matastasis submandibular, Additional enlarged left jugular lymph node suspicious for metastasis. Please clarify the acuity and behavior of the neoplasm, if known: Acuity [ ] Primary malignancy of submandibular lymph node [ ] Metastasis of submandibular lymph node [ x] B cell non hodgkin's lymphoma [ ] Other, please specify ____ [ ] Unable to determine Behavior [ ] Malignant, primary site [ x ] Malignant, secondary site [ ] In situ [ ] Of uncertain behavior [ ] Other, please specify [ ] Unable to determine MTDD
== END 2024-12-14 17:13 | disposition home or self-care (01) | DRG 842 ==
LOC: EC 12:08 → 5NMEDONC 15:04
PROVIDERS: ADMIT Internal Medicine; ATTEND Internal Medicine
PROC: 07D23ZX Extraction of Left Neck Lymphatic, Percutaneous Approach, Diagnostic (ICD-10-PCS; principal; 2024-12-14)
DX: C85.11 Unspecified B-cell lymphoma, lymph nodes of head, face, and neck (principal); E03.9 Hypothyroidism, unspecified; G25.0 Essential tremor; I07.1 Rheumatic tricuspid insufficiency; I48.91 Unspecified atrial fibrillation; I10 Essential (primary) hypertension; K76.9 Liver disease, unspecified; I45.10 Unspecified right bundle-branch block; R47.81 Slurred speech; R74.8 Abnormal levels of other serum enzymes; R27.0 Ataxia, unspecified; R29.6 Repeated falls; W18.30XA Fall on same level, unspecified, initial encounter; M25.511 Pain in right shoulder; M19.90 Unspecified osteoarthritis, unspecified site; Z79.01 Long term (current) use of anticoagulants; Z79.890 Hormone replacement therapy; Z79.899 Other long term (current) drug therapy; Z95.0 Presence of cardiac pacemaker; Z20.822 Contact with and (suspected) exposure to COVID-19
CPT/HCPCS: 36415; 38505; 70450; 70460; 70496; 70498; 71046; 74177; 76705; 76942; 80048; 80053; 81001; 82550; 82607; 82746; 83036; 83605; 84145; 84443; 84484; 85025; 85610; 85652; 85730; 86140; 87040; 87045; 87046; 87636; 88305; 88341; 88342; 93005; 93306; 96361; 96365; 96367; 99291

== ENCOUNTER → 2024-12-17 | Outpatient (CLI) | payer MEDICARE ==
[2024-12-17 19:08] LABS: ALT 65 U/L (10-49); AST 69 U/L (14-35); Albumin 3.7 g/dL (3.8-4.9); Albumin/Globulin Ratio 1.16 Ratio (1.60-3.17); Alkaline Phosphatase 185 U/L (41-126); Blood Urea Nitrogen 20.9 mg/dL (9.0-27.0); Calcium 9.6 mg/dL (8.7-10.3); Carbon Dioxide 28.5 mmol/L (21.6-31.8); Chloride 102 mmol/L (96-109); Globulin 3.2 g/dL (1.6-3.3); Glucose 131 mg/dL (70-110); Magnesium 1.8 mg/dL (1.5-2.4); Potassium 4.7 mmol/L (3.5-5.5); Sodium 141 mmol/L (135-145); Total Bilirubin 0.4 mg/dL (0.3-1.2); Total Protein 6.9 g/dL (6.2-8.2)
[2024-12-17 20:39] LABS: Basophils # (A) 0.09 X 10*3/uL (0.00-0.10); Basophils % (A) 1.2 %; Eosinophils # (A) 0.17 X 10*3/uL (0.04-0.35); Eosinophils % (A) 2.3 %; HGB 11.6 g/dL (13.0-17.0); Lymphocytes # (A) 2.27 X 10*3/uL (0.90-5.00); MCH 29.7 pg (27.0-32.0); MCHC 30.5 g/dL (32.0-37.0); MCV 97.2 FL (80.0-97.0); Monocytes # (A) 0.81 X 10*3/uL (0.20-1.00); Monocytes % (A) 11.1 %; NRBC Per 100 WBC 0 X 10*3/uL (0.00-0.01); Neutrophils # (A) 3.85 X 10*3/uL (1.80-7.70); Neutrophils % (A) 52.5 %; Platelet Count 277 X 10*3/uL (140-440); RBC 3.91 X 10*6/uL (4.40-5.60); RDW 13.4 % (11.5-14.5); WBC 7.33 X 10*3/uL (4.50-10.00)
== END | disposition home or self-care (01) ==
LOC: LABWHC1 13:34
PROVIDERS: ATTEND Registered Nurse
DX: K11.20 Sialoadenitis, unspecified (principal); R50.9 Fever, unspecified
CPT/HCPCS: 36415; 80053; 83735; 85025

== ENCOUNTER → 2024-12-31 | Outpatient (CLI) | payer MEDICARE ==
--- NOTE | 2025-01-04 22:32 | PE ---
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 Images are reviewed on the computer in the coronal, axial, a nd sagittal planes. Reconstructed rotating images are created on independent workstation and reviewe d on the computer. A localization and attenuation correction CT is performed in conjunction with e PET scan. DLP: 3862.47 mGycm SCAN: Initial Blood glucose: 93 mg/dL Average Mediastinum SUV: 1.25 Average medial right lobe normal-appearing parenchyma Liver SUV: 1.70 FINDINGS: NECK: Focal area of increased uptake within the left submandibular region, image 44, SUV 11.75. Slig htly more anterior and inferior uptake is present within the submandibular region on the left, image 47, SUV 16. There is a focal uptake within the left mid neck, image 49, SUV 19.27 submental lymph nod e anterior to the hyoid image 50 has an SUV of 16.11 THORAX: No abnormal uptake ABDOMEN: Marked abnormal multiple areas of uptake throughout the liver compatible with metastatic dis ease. Example image 136, SUV 22.57, image 143, SUV 26.14. Couple of small hyperintense nodules are a lso within the liver, example image 160, SUV 20.61. Large facet the inferior right lobe liver image 1 71, SUV 22.59. PELVIS: No abnormal uptake OSSEOUS STRUCTURES: LOCALIZATION CT: Moderate coronary artery calcification is present. There is mild cardiomegaly. Poste rior lateral right cortical renal cyst is present. Prostate is very prominent. Abnormalities within the liver are only faintly visualized centrally and markedly underestimated on C T for PET Localization compared to the PET scan. These are better visualized on the comparison CT exa m. COMPARISON: Liver masses correlate with the CT findings IMPRESSION: 1. Multiple large masses throughout both lobes of the liver. 2. There are some focal areas of abnormal uptake in the left neck compatible with lymphoma [facility], , 01/04/2025 10:29 PM
== END | disposition home or self-care (01) ==
LOC: RADPETMAIN 06:37
PROVIDERS: ATTEND Internal Medicine
DX: C85.10 Unspecified B-cell lymphoma, unspecified site (principal); R16.0 Hepatomegaly, not elsewhere classified; R93.7 Abnormal findings on diagnostic imaging of other parts of musculoskeletal system
CPT/HCPCS: 78815; A9552

== ENCOUNTER 2025-01-13 08:14 | Day surgery (SDC) | payer MEDICARE ==
[2025-01-13] MEDS ORDERED: ALPRAZolam 0.25 MG TAB PO PRN (08:35)
[2025-01-13 09:00] LABS: Mean Platelet Volume 11.4 fL (9.5-12.2); Platelet Count 174 10*3/uL (140-440)
[2025-01-13 09:08] LABS: INR 1.1 (<1.2); Prothrombin Time 11.7 sec (10.0-12.5)
[2025-01-13 09:14] VITALS: TEMP 97.4
[2025-01-13] MEDS: HYDROmorphone 0.5 MG/0.5 ML SYRINGE IVP PRN (09:44)
[2025-01-13 09:55] VITALS: RESP 16
--- NOTE | 2025-01-13 10:55 | US ---
EXAM: US biopsy liver DATE OF EXAM: 01/13/2025 COMPARISON: 12/11/2024 DESCRIPTION: The procedure of ultrasound guided core biopsy was explained to the patient. Benefits, alternatives, and risks were discussed. An informed consent was then obtained. The patient was placed in supine positioning for imaging and for the procedure. The overlying skin w as prepped and draped in usual sterile fashion. Lidocaine buffered with bicarbonate was used as anes thetic into the skin and subcutaneous tissue up to area of concern right hepatic lobe with large mass seen. Dilaudid was also administered by the nurse. 18-gauge needle was introduced into the lesion on 3 occasions 3 core samples obtained. Samples were s ent to pathology for further evaluation. The patient tolerated the procedure well and left the depart ment in stable condition. Impression: Successful, uncomplicated ultrasound guided core biopsy of area of concern right hepatic lobe. [facility], , 01/13/2025 10:53 AM
[2025-01-13 12:59] VITALS: PULSE 60
[2025-01-13 14:51] VITALS: BP 119/75
== END 2025-01-13 14:15 | disposition home or self-care (01) ==
LOC: RADPROMAIN 08:14
PROVIDERS: ATTEND Internal Medicine
DX: C85.90 Non-Hodgkin lymphoma, unspecified, unspecified site (principal)
CPT/HCPCS: 85049; 85610; 36415; 47000; 76942; J1171; 88307; 88341; 88342

== ENCOUNTER → 2025-01-29 | Outpatient (CLI) | payer MEDICARE ==
--- NOTE | 2025-01-29 10:51 | CA ---
Transthoracic Echo Report Name: Baljit Boyd Age: 84 Gender: M : 1940 Exam Date: 01/29/2025 08:31 Exam Location: [facility] Ht (in): 70 Wt (lb): 160 Ordering Physician: Jass Ga MD Attending/Referring Phys: Travel Specialist Sugey Morrell RDCS Procedure CPT: Indications: Z01.818 Chemo Cardiac Hx: Technical Quality: Fair Contrast 1: Total Dose (mL): Contrast 2: Total Dose (mL): MEASUREMENTS (Male / Female) Normal Values 2D ECHO LV Diastolic Diameter PLAX 4.9 cm 4.2 - 5.9 / 3.9 - 5.3 cm LV Systolic Diameter PLAX 3.1 cm IVS Diastolic Thickness 1.3 cm 0.6 - 1.0 / 0.6 - 0.9 cm LVPW Diastolic Thickness 1.4 cm 0.6 - 1.0 / 0.6 - 0.9 cm LV Relative Wall Thickness 0.6 RV Internal Dim ED PLAX 4.1 cm LVOT Diameter 2.0 cm LV Diastolic Volume MOD BP 82.1 cm??? 67 - 155 / 56 - 104 cm??? LV Systolic Volume MOD BP 53.3 cm??? 22 - 58 / 19 - 49 cm??? LV Ejection Fraction MOD BP 35.1 % >= 55 % LV Cardiac Index MOD BP 1003.3 cm???/min???m??? LV Diastolic Volume MOD 4C 85.3 cm??? LV Systolic Volume MOD 4C 40.7 cm??? LV Ejection Fraction MOD 4C 52.2 % LV Cardiac Index MOD 4C 1552.1 cm???/min???m??? LV Diastolic Length 4C 8.1 cm LV Systolic Length 4C 7.5 cm LV Diastolic Volume MOD 2C 75.1 cm??? LV Systolic Volume MOD 2C 44.2 cm??? LV Ejection Fraction MOD 2C 41.2 % LV Cardiac Index MOD 2C 1079.2 cm???/min???m??? LV Diastolic Length 2C 7.7 cm LV Systolic Length 2C 6.2 cm LA Volume 64.8 cm??? 18 - 58 / 22 - 52 cm??? LA Volume Index 34.2 cm???/m??? 16 - 28 cm???/m??? DOPPLER LVOT Peak Velocity 105.4 cm/s LVOT Peak Gradient 4.4 mmHg LVOT Velocity Time Integral 19.7 cm LVOT Stroke Volume 60.0 cm??? LVOT Stroke Volume Index 31.6 ml/m??? LVOT Cardiac Index 2089.9 cm???/min???m??? MV Area PHT 2.5 cm??? Mitral E Point Velocity 34.9 cm/s Mitral A Point Velocity 58.7 cm/s Mitral E to A Ratio 0.6 MV Deceleration Time 308.5 ms MV E' Velocity 5.1 cm/s Mitral E to MV E' Ratio 6.9 FINDINGS Left Ventricle Mildly increased left ventricular wall thickness. No obvious regional wall motion abnormalities. Left ventricular cavity size normal. Left ventricular ejection fraction is estimated at 50-55 %. Normal left ventricular diastolic filling pattern. Right Ventricle Mild right ventricular dilatation. Hypokinetic right ventricular free wall. Right ventricular systolic pressure within normal limits. Right Atrium Right atrial dilatation. Catheter/pacemaker wire in the right atrial cavity. Left Atrium Mildly increased left atrial volume. Mitral Valve Structurally normal mitral valve. Mitral valve thickened. Mitral annular calcification. Mild mitral regurgitation. Aortic Valve Trileaflet aortic valve. No aortic stenosis. Aortic valve sclerosis. Mild aortic regurgitation. Tricuspid Valve Structurally normal tricuspid valve. Mild tricuspid regurgitation. Pulmonic Valve Structurally normal pulmonic valve. Trace pulmonic regurgitation. Pericardium No pericardial effusion. Aorta Normal size aortic root and proximal ascending aorta. CONCLUSIONS Normal LV size fair systolic function mitral annular calcification mild mitral regurgitation mild aortic regurgitation aortic valve sclerosis mild tricuspid regurgitation. No significant pulmonary hypertension. No pericardial effusion Previewed by: Dr. Arabella Coffman MD (Electronically Signed) Final Date: 29 Jan 2025 10:51
== END | disposition home or self-care (01) ==
LOC: RADECHMAIN 08:24
PROVIDERS: ATTEND Internal Medicine
DX: Z01.818 Encounter for other preprocedural examination (principal); I08.3 Combined rheumatic disorders of mitral, aortic and tricuspid valves
CPT/HCPCS: 93306

== ENCOUNTER 2025-02-02 12:39 | Day surgery (SDC) | payer MEDICARE ==
[2025-01-29 14:25] VITALS: BMI 22.9
[~2025-02-02 12:39] MED LIST changes: +LIDOCAINE 1% (10MG/ML) FOR IV START INTRADERMA PRN; +Pre Op ABX Message 1 EACH MISC MISCELLANE ONE; -SODIUM CHLORIDE 0.9% 1,000 ML IV SCH
[2025-02-02 13:14] VITALS: TEMP 97.7
[2025-02-02] MEDS: IV FLUID CONTINUATION 1,000 ML IV ONE (13:16)
[2025-02-02] MEDS: LACTATED RINGERS 1,000 ML IV SCH (13:40)
[2025-02-02] MEDS: ONDANSETRON 4 MG/2 ML VIAL IVP STA (13:42)
[2025-02-02] MEDS: DEXAMETHASONE SOD PHOSPHATE 4 MG/ML 1 ML VIAL IVP STA (13:43)
[2025-02-02] MEDS ORDERED: PROPOFOL 10 MG/ML 20 ML VIAL IV ONE (13:46)
[2025-02-02] MEDS ORDERED: fentaNYL (PF) 50 MCG/ML 2 ML AMP ONE (13:46)
[2025-02-02 13:53] LABS: INR 1.6 (<1.2)
[2025-02-02] MEDS: LIDOCAINE 1% INJ 10MG/ML (20 ML MDV) SQ ONE ×3 (13:55→14:14)
[2025-02-02 13:57] LABS: African American GFR (CKD) 53 (>60 ml/min/1.73 sqM); Anion Gap 5 mmol/L; Blood Urea Nitrogen 45 mg/dL (9-20); Carbon Dioxide 30 mmol/L (22-30); Chloride 105 mmol/L (98-107); Glucose 90 mg/dL (74-99); Non-African American GFR(CKD) 46 (>60 ml/min/1.73 sqM); Potassium 4.3 mmol/L (3.5-5.1); Sodium 140 mmol/L (137-145)
[2025-02-02 14:14] LABS: Calcium 13.4 mg/dL (8.4-10.2)
--- NOTE | 2025-02-02 14:49 | FL ---
EXAMINATION TYPE: FL guided central line placemt DATE OF EXAM: 02/02/2025 FLUOROSCOPY PORT-A-CATH. 15 SECS FL. 0.7444 DAP. One image is provided. [facility], , 02/02/2025 2:47 PM
[2025-02-02 15:32] VITALS: BP 124/75; PULSE 68; RESP 16
--- NOTE | 2025-02-02 21:16 | P.OP ---
Date of Procedure: 02/02/25 Preoperative Diagnosis: non Hodgkin lymphoma Postoperative Diagnosis: non Hodgkin lymphoma Procedure(s) Performed: mediport insertion Implants: mediport Anesthesia: local Surgeon: Rohan Gibson Estimated Blood Loss (ml): 8 Pathology: none sent Condition: stable Disposition: PACU Indications for Procedure: Non Hodgkin lymphoma Operative Findings: none Description of Procedure: The patient was brought to the operative suite where she was cleaned and draped in sterile fashion. A timeout was performed and everyone agreed with the information recited. Next local anesthetic was used anesthetize the puncture site and clavicle. An introducer needle was then used to gain access tot he subclavian and a guide wire was used to access the svc confirmed by fluoro. A pocket was made using a 15 blade and electrocautery Next, a tunneled catheter was then used to tunnel underneath the subcutaneous tissue. A dilator sheath combo was used to dilate the tract under fluoro. The guidewire was removed. The catheter was then used to feed into the dilator sheath combo and put in place with fluoro guidance. The protective sheath was then removed. The catheter was cut to length and portacath was secured to this using a locking mechanism. The hughes needle was then used to aspirate blood and flush without difficulty.The skin was closed using 4-0 vicryl suture in a running fashion. Skin glue was used to close puncture site.
== END 2025-02-02 16:04 | disposition home or self-care (01) ==
LOC: OR 12:39
PROVIDERS: ATTEND Surgery
DX: C85.90 Non-Hodgkin lymphoma, unspecified, unspecified site (principal); I48.91 Unspecified atrial fibrillation; I10 Essential (primary) hypertension; E07.9 Disorder of thyroid, unspecified; F41.9 Anxiety disorder, unspecified; Z95.0 Presence of cardiac pacemaker; Z45.2 Encounter for adjustment and management of vascular access device; Z79.899 Other long term (current) drug therapy
CPT/HCPCS: 80048; 85610; 77001; 36561; C1788; J1100; J2405; J2003; J3010; J2704

== ENCOUNTER 2025-02-23 04:24 | Emergency (ER) | payer MEDICARE ==
--- NOTE | 2025-02-23 05:07 | ED ---
Abdominal Pain HPI - General Chief Complaint: Abdominal Pain Stated Complaint: abd pain/hard time using the bathroom Time Seen by Provider: 02/23/25 04:40 Source: patient Mode of arrival: ambulatory - History of Present Illness Initial Comments: This patient is an 84-year-old man who presents with complaint that he is having some abdominal discomfort and believes that this is related from his inability to urinate. He describes a pressure pain in the suprapubic area. The patient notes he also had feeling of constipation earlier. Patient denies fever or chills. He had not been having dysuria. No hematuria. MD Complaint: abdominal pain Onset/Timin -: hour(s) Location: suprapubic Radiation: none Migration to: no migration Severity: moderate Quality: fullness, other Consistency: constant Improves With: nothing Worsens With: nothing Associated Symptoms: other (Urinary retention) - Related Data Home Medications Medication Instructions Recorded Confirmed Digoxin [Lanoxin] 125 mcg PO QAM 12/10/22 02/02/25 Levothyroxine Sodium [Synthroid] 50 mcg PO QAM 12/10/22 02/02/25 Warfarin Sodium 5 mg PO DAILY@1600 12/10/22 02/02/25 atenoloL [Tenormin] 25 mg PO DAILY@1600 12/10/22 02/02/25 Acetaminophen [Tylenol Extra 500 mg PO QAM PRN 01/13/25 02/02/25 Strength] Apricot Seeds(Unknown Dose) 1 dose PO TID 01/29/25 02/02/25 B17(Unknown Dose) 1 dose PO TID 01/29/25 02/02/25 Enforce Restore(Unknown Dose) 1 dose PO BID 01/29/25 02/02/25 Pangamic(Unknown Dose) 1 dose PO QAM 01/29/25 02/02/25 Proenzyme(Unknown Dose) 1 dose PO QAM 01/29/25 02/02/25 Allergies Allergy/AdvReac Type Severity Reaction Status Date / Time No Known Allergies Allergy Verified 02/27/25 21:57 Review of Systems ROS Statement: Those systems with pertinent positive or pertinent negative responses have been documented in the HPI. ROS Other: All systems not noted in ROS Statement are negative. Constitutional: Denies: fever, chills, weakness Respiratory: Denies: cough, dyspnea Cardiovascular: Denies: chest pain, palpitations, edema Gastrointestinal: Reports: as per HPI, abdominal pain, constipation. Denies: nausea, vomiting, diarrhea, melena, hematochezia Genitourinary: Reports: urgency, other (Retention). Denies: dysuria, hematuria, testicular pain Musculoskeletal: Denies: back pain Skin: Denies: rash Neurological: Denies: headache, weakness, numbness Past Medical History Past Medical History: Atrial Fibrillation, Cancer, Hypertension, Osteoarthritis (OA), Sleep Apnea/CPAP/BIPAP, Thyroid Disorder Additional Past Medical History / Comment(s): right shoulder pain currently, thinks probably hurt it working out, November 2024 Falls x2 - no injuries per pt. 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 Uses CPAP History of Any Multi-Drug Resistant Organisms: None Reported Past Surgical History: Adenoidectomy, Pacemaker, Tonsillectomy Additional Past Surgical History / Comment(s): vasectomy, bashri hydrocele repair, colonoscopies, neck node biopsy + for cancer Past Anesthesia/Blood Transfusion Reactions: Previous Problems w/ Anesthesia Additional Past Anesthesia/Blood Transfusion Reaction / Comment(s): was told by mom when tonsils removed turned blue w/ether. No hx of blood transfusion to date. Type of Cardiac Device: Permanent Pacemaker Device Placement Date:: 2012 Past Psychological History: Anxiety Smoking Status: Never smoker Past Alcohol Use History: None Reported Past Drug Use History: None Reported - Past Family History Mother Family Medical History: Cancer Additional Family Medical History / Comment(s): pancreatic cancer Brother(s) Family Medical History: Cancer Additional Family Medical History / Comment(s): Non-Hodgkins lymphoma Sister(s) Family Medical History: Cancer Additional Family Medical History / Comment(s): Ovarian cancer General Exam General appearance: alert, in no apparent distress Head exam: Present: atraumatic, normocephalic Eye exam: Present: normal appearance. Absent: scleral icterus, conjunctival injection ENT exam: Present: normal oropharynx Respiratory exam: Present: normal lung sounds bilaterally. Absent: respiratory distress, wheezes, rales, rhonchi, stridor, accessory muscle use Cardiovascular Exam: Present: regular rate, normal rhythm, normal heart sounds. Absent: systolic murmur, diastolic murmur, rubs, gallop GI/Abdominal exam: Present: soft, guarding, other (Patient does have some suprapubic fullness and guarding there). Absent: distended, tenderness, rebound, rigid, mass Extremities exam: Present: normal inspection, normal capillary refill. Absent: pedal edema, calf tenderness Back exam: Present: normal inspection. Absent: CVA tenderness (R), CVA tenderness (L) Neurological exam: Present: alert Skin exam: Present: warm, dry, intact, normal color. Absent: rash Course Vital Signs 02/23/25 02/23/25 04:26 06:41 Temperature 97.7 F 98.0 F Pulse Rate 90 62 Respiratory 18 16 Rate Blood Pressure 168/90 118/77 O2 Sat by Pulse 91 L 97 Oximetry Medical Decision Making - Medical Decision Making Was pt. sent in by a medical professional or institution (FELY Mancia, BOXER OPERATOR, urgent care, hospital, or shelter...) When possible be specific @ -[No] Did you speak to anyone other than the patient for history (EMS, parent, family, police, friend...)? What history was obtained from this source @ -[No] Did you review nursing and triage notes (agree or disagree)? Why? @ -[I reviewed and agree with nursing and triage notes] Were old charts reviewed (outside hosp., previous admission, EMS record, old EKG, old radiological studies, urgent care reports/EKG's, shelter records)? Report findings @ -[No old charts were reviewed] Differential Diagnosis (chest pain, altered mental status, abdominal pain women, abdominal pain men, vaginal bleeding, weakness, fever, dyspnea, syncope, he adache, dizziness, GI bleed, back pain, seizure, CVA, palpatations, mental health, musculoskeletal)? @ -[Differential Abdominal Pain Men: Appendicitis, cholecystitis, diverticulosis, ischemic bowel, pancreatitis, hepatitis, UTI, gastroenteritis, AAA, incarcerated hernia, bowel obstruction, constipation, inflammatory bowel, hepatitis, peptic ulcer disease, splenic infarction, perforated viscus, testicular torsion, this is not meant to be an all-inclusive list EKG interpreted by me (3pts min.). @ -[As above] X-rays interpreted by me (1pt min.). @ -[None done] CT interpreted by me (1pt min.). @ -[None done] U/S interpreted by me (1pt. min.). @ -[None done] What testing was considered but not performed or refused? (CT, X-rays, U/S, labs)? Why? @ -[None] What meds were considered but not given or refused? Why? @ -[None] Did you discuss the management of the patient with other professionals (professionals i.e. , PA, BOXER OPERATOR, lab, RT, psych nurse, oncology social worker, rules examiner, teacher, dairy quality assurance officer, case aide)? Give summary @ -[No] Was smoking cessation discussed for >3mins.? @ -[No] Was critical care preformed (if so, how long)? @ -[No] Were there social determinants of health that impacted care today? How? (Homelessness, low income, unemployed, alcoholism, drug addiction, transportation, low edu. Level, literacy, decrease access to med. care, assisted, rehab)? @ -[No] Was there de-escalation of care discussed even if they declined (Discuss DNR or withdrawal of care, Hospice)? DNR status @ -[No] What co-morbidities impacted this encounter? (DM, HTN, Smoking, COPD, CAD, Canc er, CVA, ARF, Chemo, Hep., AIDS, mental health diagnosis, sleep apnea, morbid obesity)? @ -[None] Was patient admitted / discharged? Hospital course, mention meds given and route, prescriptions, significant lab abnormalities, going to OR and other pertinent info. @ -[Patient is 84-year-old man presenting with suprapubic pressure type pain and on the exam fullness consistent with bladder. The patient had Kincaid catheter placed and promptly drained 650 mL of urine. He did have relief of symptoms and wanted to go home. Discussed appropriate further care and follow- up as well as return parameters. Undiagnosed new problem with uncertain prognosis? @ -[No] Drug Therapy requiring intensive monitoring for toxicity (Heparin, Nitro, Insulin, Cardizem)? @ -[No] Were any procedures done? @ -[No] Diagnosis/symptom? @ -[Acute urinary retention Acute, or Chronic, or Acute on Chronic? @ -[Acute Uncomplicated (without systemic symptoms) or Complicated (systemic symptoms)? @ -[Uncomplicated Side effects of treatment? @ -[No] Exacerbation, Progression, or Severe Exacerbation? @ -[No] Poses a threat to life or bodily function? How? (Chest pain, [place], [place], pneumonia, PE, COPD, DKA, ARF, appy, cholecystitis, CVA, Diverticulitis, Homicidal, Suicidal, threat to staff... and all critical care pts) @ -[No] All treatments are based on ideal body weight as in ED triage - Lab Data Lab Results 02/23/25 Range/Units 05:38 Urine Color Colorless Urine Appearance Clear (Clear) Urine pH 6.5 (5.0-8.0) Ur Specific [place] 1.006 (1.001-1.035) Urine Protein Negative (Negative) Urine Glucose (UA) Negative (Negative) Urine Ketones Negative (Negative) Urine Blood Moderate H (Negative) Urine Nitrite Negative (Negative) Urine Bilirubin Negative (Negative) Urine Urobilinogen <2.0 (<2.0) mg/dL Ur Leukocyte Esterase Negative (Negative) Urine RBC 46 H (0-5) /hpf Urine WBC 3 (0-5) /hpf Ur Squamous Epith Cells <1 (0-4) /hpf Urine Bacteria Occasional H (None) /hpf Hyaline Casts 1 (0-2) /lpf Urine Mucus Rare H (None) /hpf Disposition Clinical Impression: Urinary retention Disposition: HOME SELF-CARE Condition: Good Instructions (If sedation given, give patient instructions): Urinary Retention in Men (ED) Is patient prescribed a controlled substance at d/c from ED?: No Referrals: Mic Tracey MD [Primary Care Provider] - 1-2 days Bakari Shore MD [STAFF PHYSICIAN] - 1-2 days
[2025-02-23] MEDS: MAGNESIUM CITRATE 296 ML BOTTLE PO ONE (05:56)
[2025-02-23 06:09] LABS: Appearance,Urine Clear (Clear); Bacteria,Urine Occasional /hpf; Bilirubin,Urine Negative (Negative); Blood,Urine Moderate (Negative); Color,Urine Colorless; Glucose,Urine (UA) Negative (Negative); Hyaline Casts,Urine 1 /lpf (0-2); Ketones,Urine Negative (Negative); Leukocyte Esterase,Urine Negative (Negative); Mucus,Urine Rare /hpf; Nitrite,Urine Negative (Negative); PH, Urine 6.5 (5.0-8.0); Protein,Urine Negative (Negative); RBC,Urine 46 /hpf (0-5); Specific Gravity,Urine 1.006 (1.001-1.035); Squamous Epithelial Cell,Urine <1 /hpf (0-4); Urobilinogen,Urine <2.0 mg/dL (<2.0); WBC,Urine 3 /hpf (0-5)
[2025-02-23 06:43] VITALS: BP 118/77; PULSE 62; RESP 16; TEMP 98
== END 2025-02-23 07:30 | disposition home or self-care (01) ==
LOC: EC 04:24
DX: R33.9 Retention of urine, unspecified (principal)
CPT/HCPCS: 51702; 51798; 81001; 99284

== ENCOUNTER 2025-02-27 21:53 | Emergency (ER) | payer MEDICARE ==
[2025-02-27 21:57] VITALS: BP 130/73; PULSE 91; RESP 18; TEMP 97.3
--- NOTE | 2025-02-27 22:21 | ED ---
General Adult HPI - General Chief complaint: Urogenital Stated complaint: UTI Time Seen by Provider: 02/27/25 22:01 Source: patient Mode of arrival: ambulatory Limitations: no limitations - History of Present Illness Initial comments: Dictation was produced using [employer] dictation software. please excuse any grammatical, word or spelling errors. Chief Complaint: 84-year-old male presents to the ER for dark urine History of Present Illness: 84-year-old male recently had Kincaid catheter placed for urinary retention. Today his urine appeared to be dark in color. Patient otherwise has no complaints. The ROS documented in this emergency department record has been reviewed and confirmed by me. Those systems with pertinent positive or negative responses have been documented in the HPI. All other systems are other negative and/or noncontributory. - Related Data Home Medications Medication Instructions Recorded Confirmed Digoxin [Lanoxin] 125 mcg PO QAM 12/10/22 02/02/25 Levothyroxine Sodium [Synthroid] 50 mcg PO QAM 12/10/22 02/02/25 Warfarin Sodium 5 mg PO DAILY@1600 12/10/22 02/02/25 atenoloL [Tenormin] 25 mg PO DAILY@1600 12/10/22 02/02/25 Acetaminophen [Tylenol Extra 500 mg PO QAM PRN 01/13/25 02/02/25 Strength] Apricot Seeds(Unknown Dose) 1 dose PO TID 01/29/25 02/02/25 B17(Unknown Dose) 1 dose PO TID 01/29/25 02/02/25 Enforce Restore(Unknown Dose) 1 dose PO BID 01/29/25 02/02/25 Pangamic(Unknown Dose) 1 dose PO QAM 01/29/25 02/02/25 Proenzyme(Unknown Dose) 1 dose PO QAM 01/29/25 02/02/25 Allergies Allergy/AdvReac Type Severity Reaction Status Date / Time No Known Allergies Allergy Verified 02/27/25 21:57 Review of Systems ROS Statement: Those systems with pertinent positive or pertinent negative responses have been documented in the HPI. ROS Other: All systems not noted in ROS Statement are negative. Past Medical History Past Medical History: Atrial Fibrillation, Cancer, Hypertension, Osteoarthritis (OA), Sleep Apnea/CPAP/BIPAP, Thyroid Disorder Additional Past Medical History / Comment(s): right shoulder pain currently, thinks probably hurt it working out, November 2024 Falls x2 - no injuries per pt. 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 Uses CPAP History of Any Multi-Drug Resistant Organisms: None Reported Past Surgical History: Adenoidectomy, Pacemaker, Tonsillectomy Additional Past Surgical History / Comment(s): vasectomy, bashir hydrocele repair, colonoscopies, neck node biopsy + for cancer Past Anesthesia/Blood Transfusion Reactions: Previous Problems w/ Anesthesia Additional Past Anesthesia/Blood Transfusion Reaction / Comment(s): was told by mom when tonsils removed turned blue w/ether. No hx of blood transfusion to date. Type of Cardiac Device: Permanent Pacemaker Device Placement Date:: 2012 Past Psychological History: Anxiety Smoking Status: Never smoker Past Alcohol Use History: None Reported Past Drug Use History: None Reported - Past Family History Mother Family Medical History: Cancer Additional Family Medical History / Comment(s): pancreatic cancer Brother(s) Family Medical History: Cancer Additional Family Medical History / Comment(s): Non-Hodgkins lymphoma Sister(s) Family Medical History: Cancer Additional Family Medical History / Comment(s): Ovarian cancer General Exam - General Exam Comments Initial Comments: PHYSICAL EXAM: General Impression: Alert and oriented x3, not in acute distress HEENT: Normocephalic atraumatic, extra-ocular movements intact, pupils equal and reactive to light bilaterally, mucous membranes moist. Cardiovascular: Heart regular rate and rhythm Chest: Able to complete full sentences, no retractions, no tachypnea Abdomen: abdomen soft, non-tender, non-distended, no organomegaly Musculoskeletal: Pulses present and equal in all extremities, no peripheral edema Motor: no focal deficits noted Neurological: CN II-XII grossly intact, no focal motor or sensory deficits noted Skin: Intact with no visualized rashes Psych: Normal affect and mood Limitations: no limitations Course Vital Signs 02/27/25 21:54 Temperature 97.3 F L Pulse Rate 91 Respiratory 18 Rate Blood Pressure 130/73 O2 Sat by Pulse 93 L Oximetry Medical Decision Making - Medical Decision Making Was pt. sent in by a medical professional or institution (, PA, MACHINE CLOTHING REPLACER, urgent care, hospital, or [facility]...) When possible be specific @ -No Did you speak to anyone other than the patient for history (EMS, parent, family, police, friend...)? What history was obtained from this source @ -No Did you review nursing and triage notes (agree or disagree)? Why? @ -I reviewed and agree with nursing and triage notes Were old charts reviewed (outside hosp., previous admission, EMS record, old EKG, old radiological studies, urgent care reports/EKG's, [facility] records)? Report findings @ -No old charts were reviewed Differential Diagnosis (chest pain, altered mental status, abdominal pain women, abdominal pain men, vaginal bleeding, musculoskeletal, weakness, fever, dyspnea, syncope, headache, dizziness, GI bleed, back pain, seizure, CVA, palpatations, mental health)? @ -UTI, hematuria, urethral injury EKG interpreted by me (3pts min.). @ -None done X-rays interpreted by me (1pt min.). @ -None done CT interpreted by me (1pt min.). @ -None done U/S interpreted by me (1pt. min.). @ -None done What testing was considered but not performed or refused? (CT, X-rays, U/S, labs)? Why? @ -None What meds were considered but not given or refused? Why? @ -None Was smoking cessation discussed for >3mins.? @ -No Were there social determinants of health that impacted care today? How? (Homelessness, low income, unemployed, alcoholism, drug addiction, transportation, low edu. Level, literacy, decrease access to med. care, custodial, rehab)? @ -No Was there de-escalation of care discussed even if they declined (Discuss DNR or withdrawal of care, Hospice)? DNR status @ -No What co-morbidities impacted this encounter? (DM, HTN, Smoking, COPD, CAD, Cancer, CVA, ARF, Chemo, Hep., AIDS, mental health diagnosis, sleep apnea, morbid obesity)? @ -None Was patient admitted / discharged? Hospital course, mention meds given and route, prescriptions, significant lab abnormalities, going to OR and other pertinent info. @ -84-year-old male with hematuria. He has indwelling Kincaid catheter. Kincaid catheter functioning well urinalysis shows hematuria. Urine sent for culture. Patient has an appoint with urology coming up. Patient discharged. Did you discuss the management of the patient with other professionals (professionals i.e. , PA, MACHINE CLOTHING REPLACER, lab, RT, psych nurse, social science professor, door to door salesperson, teacher, housing officer, case packer)? Give summary @ -No Was critical care preformed (if so, how long)? @ -No Undiagnosed new problem with uncertain prognosis? @ -No Drug Therapy requiring intensive monitoring for toxicity (Heparin, Nitro, Insulin, Cardizem)? @ -No Were any procedures done? @ -No Diagnosis/symptom? Acute, or Chronic, or Acute on Chronic? Uncomplicated (without systemic symptoms) or Complicated (systemic symptoms)? @ -Hematuria Side effects of treatment? @ -No Exacerbation, Progression, or Severe Exacerbation? @ -No Poses a threat to life or bodily function? How? (Chest pain, [place], [place], pneumonia, PE, COPD, DKA, ARF, appy, cholecystitis, CVA, Diverticulitis, Homicidal, Suicidal, threat to staff... and all critical care pts) @ -No - Lab Data Lab Results 02/27/25 Range/Units 22:09 Urine Color Light Red Urine Appearance Cloudy (Clear) Urine pH 6.0 (5.0-8.0) Ur Specific [place] 1.021 (1.001-1.035) Urine Protein 1+ H (Negative) Urine Glucose (UA) Negative (Negative) Urine Ketones Negative (Negative) Urine Blood Large H (Negative) Urine Nitrite Negative (Negative) Urine Bilirubin Negative (Negative) Urine Urobilinogen <2.0 (<2.0) mg/dL Ur Leukocyte Esterase Small H (Negative) Urine RBC >182 H (0-5) /hpf Urine WBC 49 H (0-5) /hpf Urine WBC Clumps Rare H (None) /hpf Urine Bacteria Rare H (None) /hpf Urine Mucus Rare H (None) /hpf Urine Yeast (Budding) Many H (None) /hpf Disposition Clinical Impression: Hematuria Disposition: HOME SELF-CARE Condition: Good Instructions (If sedation given, give patient instructions): Hematuria (ED) Additional Instructions: follow up with Urology Is patient prescribed a controlled substance at d/c from ED?: No Referrals: Mic Tracey MD [Primary Care Provider] - 1-2 days Time of Disposition: 00:02
[2025-02-27 23:23] LABS: Appearance,Urine Cloudy (Clear); Bacteria,Urine Rare /hpf; Bilirubin,Urine Negative (Negative); Blood,Urine Large (Negative); Budding Yeast,Urine Many /hpf; Color,Urine Light Red; Glucose,Urine (UA) Negative (Negative); Ketones,Urine Negative (Negative); Leukocyte Esterase,Urine Small (Negative); Mucus,Urine Rare /hpf; Nitrite,Urine Negative (Negative); Protein,Urine 1+ (Negative); RBC,Urine >182 /hpf (0-5); Specific Gravity,Urine 1.021 (1.001-1.035); Urobilinogen,Urine <2.0 mg/dL (<2.0); WBC,Urine 49 /hpf (0-5)
== END 2025-02-28 00:06 | disposition home or self-care (01) ==
LOC: EC 21:53
DX: R31.9 Hematuria, unspecified (principal)
CPT/HCPCS: 51702; 51798; 81001; 87086; 99283

== ENCOUNTER → 2025-04-15 | Outpatient (CLI) | payer MEDICARE ==
--- NOTE | 2025-04-18 16:14 | PE ---
EXAMINATION TYPE: PET CT fusion skull to thigh DATE OF EXAM: 04/15/2025 CLINICAL INDICATION:Male, 84 years old with history of C85.88 LYMPHOMA; TECHNIQUE: Following the intravenous administration of 13.59 mCi of F-18 FDG, whole body images are performed from the skull base to the Mid thigh. Images are reviewed on the computer in the coronal, axial, and sagittal planes. Reconstructed rotating images are created on independent workstation an d reviewed on the computer. A non-contrast CT is performed in conjunction with the PET scan. Glucos e level 114 mg/dL CT DLP: 538 mGycm, Automated exposure control for dose reduction was used. COMPARISON: CT None, PET/CT 12/31/2024, MRI: None FINDINGS: Mediastinal SUV mean is 1.6. Hepatic parenchyma SUV mean is 2.0. SKULL BASE AND NECK: No suspicious radiotracer activity. CHEST, MEDIASTINUM, AND HILAR REGION: No suspicious radiotracer activity. ABDOMEN AND PELVIS: No suspicious radiotracer activity. Scattered low density lesions throughout the liver which previously demonstrate FDG activity. No upta ke is identified within these lesions.. MUSCULOSKELETAL STRUCTURES: Diffuse osseous uptake compatible with colony stimulating factor medicine OTHER CT: Atherosclerosis of the arterial vasculature. Right chest wall Dekalf-[id number]-Isly in appropriate position. Moderate cardiac conduction leads in appropriate position. The heart is moderate to severel y enlarged in size. Severe coronary artery calcifications. Moderate aortic valve calcifications. Scat tered cystic lesions throughout the liver present. Right bowel containing inguinal hernia no evidence for obstruction. Prostatomegaly. Bladder wall thickening sinuses chronic bladder outlet obstruction. IMPRESSION: 1. Positive response to therapy. No suspicious radiotracer activity. Hepatic lesions do not demonstr ate FDG activity as on prior exam. Suggesting posttreatment changes. 2. Diffuse osseous uptake compatible with colony stimulating factor medicine [facility], , 04/18/2025 4:11 PM
== END | disposition home or self-care (01) ==
LOC: RADPETMAIN 12:27
PROVIDERS: ATTEND Internal Medicine
DX: C85.88 Other specified types of non-Hodgkin lymphoma, lymph nodes of multiple sites (principal); K76.9 Liver disease, unspecified
CPT/HCPCS: 78815; A9552